=== PATIENT | female | born 1995 | race Caucasian/White ===

== ENCOUNTER 2022-08-21 13:06 | Emergency (ER) | payer OTHER, SELFPAY ==
--- NOTE | ~2022-08-21 | CT_ITS ---
EXAMINATION: CT lumbar spine wo con DATE: 08/21/2022 18:31 INDICATION: Low back pain with urinary incontinence TECHNIQUE: Computed tomography (CT) of the lumbar spine was performed without intravenous contrast. T he dose-length product (DLP) was 1289.57 mGy-cm. Iterative reconstruction was used. COMPARISON: None FINDINGS: There are 2 mm of retrolisthesis of L5 on S1. Vertebral body alignment is otherwise normal. The vertebral body heights are maintained. The intervertebral disc spaces are normal. There is a mil d central posterior disc bulge at L5-S1. IMPRESSION: 1. Mild lumbar spondylosis without acute findings. Reviewed, dictated and finalized at location F. 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
[2022-08-21 13:21] VITALS: BP 126/67; PULSE 68; RESP 16; TEMP 36.5; O2SAT 100
--- NOTE | 2022-08-21 16:14 | PC.NURSE ---
patient flopping aroun in bed using call light multiple times stating that her pain is Severe . family at nursing station accusing this RN of : not caring for patient. ERP made aware. no new orders
--- NOTE | 2022-08-21 16:28 | ED.BACK ---
HPI - Back Pain/Injury General Chief Complaint: Back Pain/Injury Stated Complaint: fall x 3 - reports legs just give out - back spasm Time Seen by Provider: 08/21/22 15:44 History of Present Illness HPI Narrative: Patient is a 26-year-old female with a history of depression, PTSD presenting with back pain. Patient states that she has had intermittent but worsening lower back pain for the last 4 to 6 months. Denies any recent trauma. Patient states that she saw her PCP about a month ago and they wanted to work on improving her mental health. States that she mentioned her back pain but no imaging was obtained. Since that time she has continued to have intermittent lower back pain that sometimes now radiates to her neck. States that she has had shooting pain down both of her arms for the last several weeks. States that she feels like both of her lower extremities have felt weaker than normal. Today she called her PCPs office who told her to go to the ER. She also complains that she has had episodes of feeling like she is not fully emptying her bladder. Denies groin anesthesia or bowel incontinence. No numbness in her lower extremities. No fevers or chills. No history of IV drug use. She denies headache, vision changes, chest pain, shortness of breath, cough, abdominal pain, vomiting, diarrhea, leg swelling. Related Data Allergies Allergy/AdvReac Type Severity Reaction Status Date / Time No Known Allergies Allergy Verified 08/21/22 13:07 Review of Systems Review of Systems: All systems reviewed & are unremarkable except as noted in HPI and below Exam Narrative: GENERAL: Well-appearing, well-nourished, and in no acute distress. HEAD: Normocephalic, atraumatic. EYES: PERRLA and EOMI. ENT: Nares clear, no rhinorrhea or epistaxis. Mucous membranes moist. NECK: Supple. CHEST: Clear to auscultation. No respiratory distress. HEART: Regular rate and rhythm. No murmur heard. Normal peripheral pulses. ABDOMEN: Soft, nontender, nondistended, normal active bowel sounds. EXTREMITIES: Normal range of motion. No edema. SKIN: Warm, dry, no rash. NEURO: No focal deficits. Alert and oriented x3. Strength is 5 out of 5 in all extremities, no sensory deficits PSYCH: Normal mood and affect. Course Vital Signs Vital signs: Vital Signs Temperature 97.7 F 08/21/22 13:21 Pulse Rate 68 08/21/22 13:21 Respiratory Rate 16 08/21/22 13:21 Blood Pressure 126/67 08/21/22 13:21 Pulse Oximetry 100 08/21/22 13:21 Oxygen Delivery Room Air 08/21/22 13:21 Temperature 97.7 F 08/21/22 13:21 Pulse Rate 73 08/21/22 21:10 Respiratory Rate 16 08/21/22 21:10 Blood Pressure 127/77 08/21/22 21:10 Pulse Oximetry 98 08/21/22 21:10 Oxygen Delivery Room Air 08/21/22 13:21 MDM - Back Pain/Injury MDM Narrative Medical decision making narrative: Patient is a 26-year-old female presenting with several months of back pain. Vitals are within normal limits. Exam is unremarkable. She is neurologically intact. She does have some lumbar tenderness that extends across her buttocks. CT lumbar spine shows no acute abnormalities. Blood work is unremarkable. CRP is normal. ESR is very mildly elevated. UA is unremarkable. Patient does report improvement following IV Toradol, Tylenol, Decadron. Feel she is safe for outpatient work-up. Will prescribe Medrol Dosepak and Flexeril. Advised close PCP follow-up. Strict return precautions given. Patient voiced understanding and is agreeable with plan. Discharged in stable condition. Lab Data Result diagrams: 08/21/22 17:01 08/21/22 17:01 Labs: Lab Results 08/21/22 08/21/22 08/21/22 Range/Units 17:01 17:01 18:06 WBC 6.8 (4.5-10.0) K/mm3 RBC 4.17 L (4.2-5.4) M/mm3 Hgb 12.3 (12.0-15.0) g/dL Hct 38.3 (37.0-47.0) % MCV 91.8 (80-100) fl MCH 29.5 (26-34) pg MCHC 32.1 (32-36) g/dl RDW 13.4 (11.5-14.5) % Pl
[2022-08-21] MEDS: SODIUM CHLORIDE 0.9% IV 1,000 ML 999 ML IV CONT (17:02)
[2022-08-21] MEDS: KETOROLAC 30 MG/ML VIAL (*BKC) IV PUSH (17:02)
[2022-08-21] MEDS: CYCLOBENZAPRINE HCL 10 MG TABLET PO (17:08)
[2022-08-21 17:15] LABS: Basophils Percent Auto 0.4 % (0.2-1.2); Eosinophils Absolute Auto 0.1 K/mm3 (0-0.3); Eosinophils Percent Auto 1.3 % (0-4.4); Hematocrit 38.3 % (37.0-47.0); Hemoglobin 12.3 g/dL (12.0-15.0); Immature Granulocyte Absolute 0.02 K/mm3 (0.00-0.031); Immature Granulocyte Percent A 0.3 % (0-0.5); Lymphocytes Absolute Auto 2.78 K/mm3 (0.9-3.2); Lymphocytes Percent Auto 41.1 % (18.3-44.2); Mean Corpuscular HGB Conc 32.1 g/dl (32-36); Mean Corpuscular Hemoglobin 29.5 pg (26-34); Mean Corpuscular Volume 91.8 fl (80-100); Mean Platelet Volume 9.2 fl (7.4-10.4); Monocytes Absolute Auto 0.4 K/mm3 (0.1-0.6); Monocytes Percent Auto 5.3 % (2.6-8.5); Neutrophils Absolute Auto 3.5 K/mm3 (1.3-6.7); Neutrophils Percent Auto 51.6 % (45.5-73.1); Platelet Count Result 310 k/mm3 (150-375); Red Blood Count 4.17 M/mm3 (4.2-5.4); Red Cell Distribution Width 13.4 % (11.5-14.5); White Blood Count 6.8 K/mm3 (4.5-10.0)
[2022-08-21 17:20] LABS: Alanine Aminotransferase 39 U/L (6-35); Albumin Level 4.7 g/dL (3.5-5.1); Alkaline Phosphatase 91 U/L (38-126); Anion Gap 12 mmol/L (8-16); Aspartate Amino Transferase 27 U/L (14-36); Bilirubin,Total 0.6 mg/dL (0.2-1.3); Blood Urea Nitrogen 10 mg/dL (7-17); Carbon Dioxide 23 mmol/L (22-30); Chloride 104 mmol/L (98-107); Estimated CRCL calculation 121 ml/min; Estimated Glomerular Filt Rate > 60; Glucose 99 mg/dL (65-110); Potassium 3.8 mmol/L (3.4-5.0); Sodium 139 mmol/L (137-145)
[2022-08-21 18:08] LABS: Erythrocyte Sedimentation Rate 33 mm/hr (0-20)
[2022-08-21 18:13] LABS: Appearance Urine Clear (Clear); Bilirubin Urine Negative (Negative); Blood Urine Negative (Negative); Color Urine Yellow (Yellow); Glucose Urine UA Negative (Negative); Ketones Urine Trace mg/dL (Negative); Leukocyte Esterase Ur Negative LEU/UL (Negative); Nitrate Urine Negative (Negative); Protein Urine Negative (Negative); Specific Grav Ur 1.025 (1.001-1.035); Urobilinogen Urine 0.2 mg/dL (<2.0); pH Urine 5.5 (5.0-9.0)
[2022-08-21 18:18] LABS: Add Urine Microscopic? YES; Bacteria Urine Trace /hpf; Mucus Urine Rare /lpf; Squamous Epithelial Cell Urine Few /hpf (Few); WBC Urine 0-3 /hpf
[2022-08-21 21:10] VITALS: BP 127/77; PULSE 73; RESP 16; O2SAT 98
== END 2022-08-21 21:10 | disposition home or self-care (01) ==
PROVIDERS: Emergency Provider Emergency Medicine
DX: M47.26 Other spondylosis with radiculopathy, lumbar region (principal)
CPT/HCPCS: 36415; 72131; 80053; 81001; 81025; 85025; 85652; 86140; 96361; 96374; 96375; 99284; A9270; J0131; J1100; J1885; J7030

== ENCOUNTER 2023-12-31 02:12 | Emergency (ER) | payer OTHER, SELFPAY ==
--- NOTE | ~2023-12-31 | CT_ITS ---
EXAMINATION: CT abdomen pelvis w con DATE: 12/31/2023 03:41 INDICATION: Epigastric abdominal pain radiating to the back. TECHNIQUE: Computed tomography (CT) of the abdomen and pelvis was performed with 100 mL Omnipaque 350 intravenous contrast. Automated exposure control and iterative reconstruction technique were employe d. The dose-length product was 1077.59 mGy-cm. COMPARISON: None. FINDINGS: The visualized portions of the lung bases demonstrate mild atelectasis. No pleural effusion . The heart size is normal. No pericardial effusion. The liver and spleen are normal. There are ch es of cholecystectomy. The pancreas, adrenal glands, and kidneys are normal. There are no dilated loo ps of bowel. The appendix is normal. There are no pathologically enlarged lymph nodes. There is no fr ee intraperitoneal fluid. There is internal fixation of left femur. There is mild lumbar spondylosis. IMPRESSION: 1. No etiology for the patient's symptoms. Reviewed, dictated and finalized at location E.
--- NOTE | 2023-12-31 02:42 | ED.GENADULT ---
HPI - General Adult General Chief complaint: Abdominal Pain Stated complaint: ABDOMINAL PAIN Time Seen by Provider: 12/31/23 02:22 History of Present Illness HPI narrative: This is a 28-year-old female presenting ED with chief complaint of abdominal pain. Pain started approximately 24 hours ago while she was trying to go to bed. It is an achy pain in the epigastric area that wraps around to her back. It is 5/10 in intensity, constant and worsening. She has never had pain like this before. Improved with Tylenol p.m. there are no exacerbating symptoms. It is associated with nausea vomiting diarrhea. No fevers chills chest pain difficulty breathing. patient denies dysuria says she is having difficulty initiating stream when she has the urge to go. Patient takes Ozempic for which she pays out of pocket without a supervising physician. Related Data Home Medications Medication Instructions Recorded Confirmed Ozempic 1 mg IM WEEKLY 12/31/23 12/31/23 Allergies Allergy/AdvReac Type Severity Reaction Status Date / Time No Known Allergies Allergy Verified 12/31/23 03:01 PENDING SALE TO [facility] Past Medical History Medical History Anxiety Exam Narrative: APPEARANCE: No apparent distress. Head: atraumatic. EYES: EOMI, NOSE: Atraumatic NECK: Trachea midline RESPIRATORY: No increased rate of breathing, CTAB CARDIOVASCULAR: RRR, ABDOMINAL: Tenderness to palpation in the epigastric region with voluntary guarding MUSCULOSKELETAl: No obvious deformities NEURO: Alert. Moving 4/4 extremities SKIN:: Warm, dry. Normal color PSYCHIATRIC: Normal affect Course Vital Signs Vital signs: Vital Signs Temperature 97.3 F L 12/31/23 02:46 Pulse Rate 79 12/31/23 02:46 Respiratory Rate 18 12/31/23 02:46 Blood Pressure 123/83 12/31/23 02:46 Pulse Oximetry 97 12/31/23 02:46 Oxygen Delivery Room Air 12/31/23 02:46 Temperature 97.2 F L 12/31/23 04:07 Pulse Rate 71 12/31/23 04:07 Respiratory Rate 18 12/31/23 04:07 Blood Pressure 106/65 12/31/23 04:07 Pulse Oximetry 97 12/31/23 04:07 Oxygen Delivery Room Air 12/31/23 04:07 Medical Decision Making MDM Narrative Medical decision making narrative: -Course: -DDX includes but is not limited to: gastritis, pancreatitis, ozmepic side effect, viral illness -Co-morbidities complicating care: depression, off-label Ozempic use -Social determinants of health: Unemployed, on government aid -Independent interpretation of studies: labs reviewed and within normal limits. Lipase normal. Not indicative infection. UDS negative alcohol negative. Independent EKG interpretation: Rhythm [sinus], Rate [74], Boyd -[normal], MD -[normal], QRS [narrow], QTC [normal], T waves -[negative for concerning inversions], ST Segments - [Negative for concerning elevations] Final interpretations: [Normal Sinus Rhythm] -Interventions: 2 L normal saline Pepcid, Toradol, Zofran -Shared decision making / Disposition: discharged -RX Pepcid, Zofran Vital Signs Vital Signs: Vital Signs Temperature 97.3 F L 12/31/23 02:46 Pulse Rate 79 12/31/23 02:46 Respiratory Rate 18 12/31/23 02:46 Blood Pressure 123/83 12/31/23 02:46 Pulse Oximetry 97 12/31/23 02:46 Oxygen Delivery Room Air 12/31/23 02:46 Temperature 97.2 F L 12/31/23 04:07 Pulse Rate 71 12/31/23 04:07 Respiratory Rate 18 12/31/23 04:07 Blood Pressure 106/65 12/31/23 04:07 Pulse Oximetry 97 12/31/23 04:07 Oxygen Delivery Room Air 12/31/23 04:07 Lab Data 12/31/23 02:53 12/31/23 02:53 Labs: Lab Results 12/31/23 12/31/23 12/31/23 Range/Units 02:53 03:24 04:04 WBC 9.2 (4.8-10.8) K/mm3 RBC 4.04 L (4.20-5.40) M/mm3 Hgb 11.7 L (12.0-15.0) g/dL Hct 36.6 (35.0-49.0) % MCV 90.6 (78.0-102.0) fL MCH 29.0 (27.0-31.0) pg MCHC 32.0 (32-36) g/dL RDW 12.7
--- NOTE | 2023-12-31 02:43 | ECG_ITS ---
Measurements Intervals [place] Rate: 74 P: 18 [place]: 180 QRS: -9 QRSD: 94 T: -14 QT: 380 QTc: 423 Interpretive Statements SINUS RHYTHM LOW QRS VOLTAGE IN PRECORDIAL LEADS NONSPECIFIC ST-T WAVE ABNORMALITY- DIFFUSE LEADS BORDERLINE ECG NO PREVIOUS ECG AVAILABLE FOR COMPARISON Electronically Signed On 12-31-2023 6:27:34 CDT by Chris Souza D.O.
[2023-12-31 02:46] VITALS: BP 123/83; PULSE 79; RESP 18; TEMP 36.3; O2SAT 97
[2023-12-31 02:56] LABS: Basophils Absolute Auto 0.03 K/mm3 (0.00-0.10); Basophils Percent Auto 0.3 % (0.0-1.0); Eosinophils Percent Auto 3.2 % (1.0-6.0); Hematocrit 36.6 % (35.0-49.0); Hemoglobin 11.7 g/dL (12.0-15.0); Immature Granulocyte Absolute 0.02 K/mm3 (0.00-0.00); Immature Granulocyte Percent A 0.2 % (0.0-0.0); Lymphocytes Absolute Auto 3.56 K/mm3 (1.10-4.50); Lymphocytes Percent Auto 38.5 % (18.0-42.0); Mean Corpuscular Volume 90.6 fL (78.0-102.0); Monocytes Absolute Auto 0.32 K/mm3 (0.10-0.90); Monocytes Percent Auto 3.5 % (2.0-11.0); Neutrophils Absolute Auto 5.01 K/mm3 (1.70-7.20); Neutrophils Percent Auto 54.3 % (50.0-70.0); Platelet Count Result 307 K/mm3 (150-420); Red Blood Count 4.04 M/mm3 (4.20-5.40); Red Cell Distribution Width 12.7 % (11.6-14.4); White Blood Count 9.2 K/mm3 (4.8-10.8)
[2023-12-31 02:59] LABS: Add Urine Microscopic? NO; Appearance Urine Clear (Clear); Bilirubin Urine Negative (Negative); Blood Urine Negative (Negative); Color Urine Yellow (Yellow); Glucose Urine UA Negative (Negative); Ketones Urine Negative (Negative); Leukocyte Esterase Ur Negative LEU/UL (Negative); Nitrate Urine Negative (Negative); Protein Urine Negative (Negative); Specific Grav Ur >= 1.030 (1.010-1.020); Urobilinogen Urine 0.2 mg/dL (0.2-1.0); pH Urine 5.5 (5.0-8.0)
[2023-12-31 03:06] LABS: Amphetamine Screen Urine Negative (Negative); Barbiturate Screen Urine Negative (Negative); Benzodiazepines Screen Urine Negative (Negative); Cannabinoid Screen Urine Negative (Negative); Cocaine Screen Urine Negative (Negative); Methadone Screen Urine Negative (Negative); Opiate Screen Urine Negative (Negative); Phencyclidine Screen Urine Negative (Negative)
[2023-12-31 03:16] LABS: Alanine Aminotransferase 24 U/L (14-59); Albumin Level 3.8 g/dL (3.4-5.0); Alkaline Phosphatase 78 U/L (46-116); Anion Gap 11 mmol/L (8-16); Aspartate Amino Transferase 13 U/L (15-37); Bilirubin,Total 0.5 mg/dL (0.00-1.00); Blood Urea Nitrogen 16 mg/dL (7-18); Calcium 8.8 mg/dL (8.5-10.1); Carbon Dioxide 24 mmol/L (21-32); Chloride 104 mmol/L (98-108); Estimated CRCL calculation 105 ml/min; Estimated Glomerular Filt Rate > 60; Glucose 114 mg/dL (70-99); Lipase 44 U/L (16-77); Osmolality Calculated 290 mOsm/kg (285-295); Potassium 3.5 mmol/L (3.5-5.1); Sodium 139 mmol/L (136-145); Total Protein 7.7 g/dL (6.4-8.2)
[2023-12-31 03:18] LABS: Ethanol < 3 mg/dL (0-6)
[2023-12-31 03:20] LABS: Lactic Acid Reflex 1.2 mmol/L (0.4-2.0)
[2023-12-31] MEDS: SODIUM CHLORIDE 0.9% IV 2,000 ML 999 ML IV CONT (03:24)
[2023-12-31] MEDS: FAMOTIDINE 20 MG/2 ML VIAL IV PUSH (03:25)
[2023-12-31] MEDS: ONDANSETRON INJ 4 MG/2 ML VIAL IV PUSH (03:25)
[2023-12-31] MEDS: KETOROLAC 15 MG/ML VIAL (*BKC) IV PUSH (03:26)
[2023-12-31 03:27] LABS: Pregnancy On Board Control Positive; Urine Pregnancy Test Negative
--- NOTE | 2023-12-31 03:30 | PC.NURSE ---
PATIENT MEDICATED PER ORDER, SEE DEC. TAKEN TO CT SCAN VIA WHEELCHAIR BY LICENSED PROSTHETIST/ORTHOTIST. GIVEN SECOND WARM BLANKET PRIOR TO TRANSPORT. PATIENT NOT HAVING ACTIVE EMESIS.
--- NOTE | 2023-12-31 04:01 | PC.NURSE ---
DR COLEMAN AT BEDSIDE, UPDATE PROVIDED. PATIENT AWAKE AND ALERT WITHOUT DISTRESS RESTING ON STRETCHER. IVF INFUSING. PATIENT DENIES CURRENT NEEDS, SWABBED FOR RESPIRATORY VIRUSES PER ORDER.
[2023-12-31 04:07] VITALS: BP 106/65; PULSE 71; RESP 18; TEMP 36.2; O2SAT 97
[2023-12-31 04:46] LABS: Influenza A QL RT-PCR Negative (Negative); Influenza B QL RT-PCR Negative (Negative); RSV RNA, RT-PCR Negative (Negative); SARS-CoV-2 RNA PCR Negative (Negative)
--- NOTE | 2023-12-31 04:52 | PC.NURSE ---
AT BEDSIDE, UPDATE REGARDING LABS AND IMAGING RESULTS PRESENTED TO PATIENT AT THIS TIME. PATIENT AWAKE AND ALERT WITHOUT DISTRESS.
== END 2023-12-31 05:09 | disposition home or self-care (01) ==
PROVIDERS: Emergency Provider Emergency Medicine
DX: K52.9 Noninfective gastroenteritis and colitis, unspecified (principal); Z79.84 Long term (current) use of oral hypoglycemic drugs; Z20.822 Contact with and (suspected) exposure to COVID-19
CPT/HCPCS: 36415; 74177; 80053; 80307; 81003; 81025; 83605; 83690; 85025; 87637; 93005; 96361; 96374; 96375; 99284; J1885; J2405; J7030; Q9967

== ENCOUNTER 2024-08-01 14:27 | Emergency (ER) | payer OTHER, SELFPAY ==
[2024-08-01 14:28] VITALS: BP 141/87; PULSE 72; RESP 20; TEMP 36.3; O2SAT 95
--- NOTE | 2024-08-01 14:42 | ECG_ITS ---
Test Date: 2024-08-01 14:57:13 Measurements Intervals [place] Rate: 72 P: 20 [place]: 164 QRS: -3 QRSD: 97 T: 13 QT: 411 QTc: 453 Interpretive Statements SINUS RHYTHM LOW QRS VOLTAGE IN PRECORDIAL LEADS [QRS DEFLECTION < 1.0 mV IN CHEST LEADS] NONSPECIFIC T-WAVE ABNORMALITY ABNORMAL ECG No previous ECG available for comparison Electronically Signed On 08-02-2024 13:14:10 CDT by Bran Graham M.D.
[2024-08-01] MEDS: MECLIZINE HCL 25 MG TABLET PO (14:48)
[2024-08-01] MEDS: ONDANSETRON HCL ODT 4 MG TABLET PO (14:48)
[2024-08-01 15:11] LABS: Basophils Absolute Auto 0.05 K/mm3 (0.00-0.10); Basophils Percent Auto 0.5 % (0.0-1.0); Eosinophils Absolute Auto 0.14 K/mm3 (0.02-0.50); Eosinophils Percent Auto 1.5 % (1.0-6.0); Hematocrit 37.9 % (35.0-49.0); Hemoglobin 12.3 g/dL (12.0-15.0); Immature Granulocyte Absolute 0.03 K/mm3 (0.00-0.00); Immature Granulocyte Percent A 0.3 % (0.0-0.0); Lymphocytes Absolute Auto 3.76 K/mm3 (1.10-4.50); Lymphocytes Percent Auto 41.3 % (18.0-42.0); Mean Corpuscular HGB Conc 32.5 g/dL (32-36); Mean Corpuscular Hemoglobin 29.3 pg (27.0-31.0); Mean Corpuscular Volume 90.2 fL (78.0-102.0); Monocytes Absolute Auto 0.39 K/mm3 (0.10-0.90); Monocytes Percent Auto 4.3 % (2.0-11.0); Neutrophils Absolute Auto 4.74 K/mm3 (1.70-7.20); Neutrophils Percent Auto 52.1 % (50.0-70.0); Platelet Count Result 325 K/mm3 (150-420); Red Cell Distribution Width 12.9 % (11.6-14.4); White Blood Count 9.1 K/mm3 (4.8-10.8)
[2024-08-01 15:14] LABS: Add Urine Microscopic? NO; Appearance Urine Clear (Clear); Bilirubin Urine Negative (Negative); Blood Urine Negative (Negative); Color Urine Light Yellow (Yellow); Glucose Urine UA Negative (Negative); Ketones Urine Negative (Negative); Leukocyte Esterase Ur Negative LEU/UL (Negative); Nitrate Urine Negative (Negative); Protein Urine Negative (Negative); Specific Grav Ur 1.025 (1.010-1.020); Urobilinogen Urine 0.2 mg/dL (0.2-1.0)
[2024-08-01 15:21] LABS: Pregnancy On Board Control Positive; Urine Pregnancy Test Negative
--- NOTE | 2024-08-01 15:25 | ED.DIZZY ---
HPI - Dizziness General Chief Complaint: Dizziness Stated Complaint: dizzy Source: patient and family Mode of arrival: ambulatory Limitations: no limitations History of Present Illness HPI Narrative: this is a 28-year-old female with no significant past medical history presents with vertigo sensation of room spinning with some mild nausea no vomiting no fever chills no chest pain no shortness of breath no headaches. Symptoms started few days ago and approximately 1 week ago had an upper respiratory viral type syndrome. MD elicited complaint: dizziness Pertinent past history: inner ear problems Timing: gradual onset Severity: mild Description: sense of movement and room spinning Related Data Home Medications Medication Instructions Recorded Confirmed escitalopram oxalate 5 mg tablet 5 mg PO HS 08/01/24 08/01/24 ziprasidone HCl 20 mg capsule 20 mg PO BID 08/01/24 08/01/24 Allergies Allergy/AdvReac Type Severity Reaction Status Date / Time bee venom protein (honey bee) Allergy Unknown Verified 08/01/24 14:32 [bees] Review of Systems Review of Systems: All systems reviewed & are unremarkable except as noted in HPI and below PMFSH Past Medical History Medical History Anxiety Exam Const: General: healthy appearing and no acute distress Nutritional Appearance: well nourished and obese Orientation/consciousness: patient oriented x3 Limitations: no limitations HENMT: Head: normal to inspection Ears: TM's normal bilaterally Face/Nose/Sinus: Normal external nose present Eyes: Conjunctivae: conjunctivae normal Pupils: Equal, round and reactive pupils present Neck: Neck: normal visual inspection and no lymphadenopathy Chest: Chest palpation & inspection: normal inspection of the chest Resp: Effort & Inspection: normal respiratory effort Auscultation: clear to auscultation bilaterally Cardio: Rate: regular rate Rhythm: regular rhythm GI: GI Palp: Yes Soft to palpation Auscultation: normal bowel sounds : General: Yes bladder normal to palpation Skin: General skin exam: normal color Rashes: no rashes Neuro: General: patient oriented x3, moves all extremities, no meningeal signs and no focal motor deficits Cranial nerves: Yes Nystagmus not present Speech: normal speech Course Course Emergency Course: Patient received ODT Zofran and meclizine after reassessment patient's symptoms have improved blood work EKG all within normal limits. Vital Signs Vital signs: Vital Signs Temperature 36.3 C L 08/01/24 14:28 Pulse Rate 72 08/01/24 14:28 Respiratory Rate 20 08/01/24 14:28 Blood Pressure 141/87 H 08/01/24 14:28 Pulse Oximetry 95 08/01/24 14:28 Oxygen Delivery Room Air 08/01/24 14:28 Temperature 36.3 C L 08/01/24 14:28 Pulse Rate 72 08/01/24 14:28 Respiratory Rate 20 08/01/24 14:28 Blood Pressure 141/87 H 08/01/24 14:28 Pulse Oximetry 95 08/01/24 14:28 Oxygen Delivery Room Air 08/01/24 14:28 MDM - Dizziness Lab Data 08/01/24 15:06 08/01/24 15:06 Labs: Lab Results 08/01/24 Range/Units 15:06 WBC 9.1 (4.8-10.8) K/mm3 RBC 4.20 (4.20-5.40) M/mm3 Hgb 12.3 (12.0-15.0) g/dL Hct 37.9 (35.0-49.0) % MCV 90.2 (78.0-102.0) fL MCH 29.3 (27.0-31.0) pg MCHC 32.5 (32-36) g/dL RDW 12.9 (11.6-14.4) % Plt Count 325 (150-420) K/mm3 MPV 9.0 L (9.2-11.8) fl Immature Gran % (Auto) 0.3 H (0.0-0.0) % Neut % (Auto) 52.1 (50.0-70.0) % Lymph % (Auto) 41.3 (18.0-42.0) % [place] % (Auto) 4.3 (2.0-11.0) % Eos % (Auto) 1.5 (1.0-6.0) % Baso % (Auto) 0.5 (0.0-1.0) % Lymph # (Auto) 3.76 (1.10-4.50) K/mm3 [place] # (Auto) 0.39 (0.10-0.90) K/mm3 Eos # (Auto) 0.14 (0.02-0.50) K/mm3 Baso # (Auto) 0.05 (0.00-0.10) K/mm3 Abs Immat Gran (auto) 0.03 H (0.00-0.00) K/mm3 Absolute Neuts (auto) 4.74 (1.70-7.20) K/mm3 Absolute Nucleated RBC 0.00 (0.00-0.00) K/mm3 Nucleated RBC % 0.0 (0-0.0) % Sodium Pending Potassium Pending Chloride Pending Carbon Dioxide Pending Anion Gap Pending BUN Pending Creatinine Pending Estim Creat Clear Calc Pending Estimated GFR Pending Glucose Pending Calculated Osmolality Pending Calcium Pending Total Bilirubin Pending AST Pending ALT Pending Alkaline Phosphatase Pending Total Protein Pending Albumin Pending Urine Color Light yellow (Yellow) Urine Appearance Clear (Clear) Urine pH 6.0 (5.0-8.0) Ur Specific [place] 1.025 H (1.010-1.020) Urine Protein Negative (Negative) Urine Glucose (UA) Negative (Negative) Urine Ketones Negative (Negative) Ur Blood (Man) Negative (Negative) Urine Nitrate Negative (Negative) Urine Bilirubin Negative (Negative) Urine Urobilinogen 0.2 (0.2-1.0) mg/dL Leukocyte Esterase Rfl Negative (Negative) AMMY/UL Urine Test Negative Critical Care Time Critical Care Time Critical Care Time: No Discharge Plan Discharge Clinical Impression: Vestibular labyrinthitis Qualifiers: Laterality: unspecified laterality Qualified Code(s): H83.09 - Labyrinthitis, unspecified ear Patient Disposition: Home, Self-Care Condition: Stable Instructions: Antibiotic Form, Labyrinthitis (ED) Additional Instructions: advised to take medication as prescribed and follow-up primary within 1 week for further evaluation and treatment. Prescriptions: New meclizine 25 mg tablet 25 mg PO TID Qty: 20 0RF ondansetron 4 mg tablet,disintegrating 4 mg PO Q6H PRN (Reason: nausea and vomiting) Qty: 14 0RF No Action ziprasidone HCl 20 mg capsule 20 mg PO BID escitalopram oxalate 5 mg tablet 5 mg PO HS Follow-up/Referrals: UNKNOWN,DOCTOR [Primary Care Provider] -
[2024-08-01 15:34] LABS: Alanine Aminotransferase 25 U/L (14-59); Albumin Level 3.6 g/dL (3.4-5.0); Alkaline Phosphatase 75 U/L (46-116); Anion Gap 10 mmol/L (4-12); Aspartate Amino Transferase 15 U/L (15-37); Bilirubin,Total 0.4 mg/dL (0.00-1.00); Blood Urea Nitrogen 17 mg/dL (7-18); Carbon Dioxide 26 mmol/L (21-32); Chloride 106 mmol/L (98-108); Estimated CRCL calculation 87 ml/min; Estimated Glomerular Filt Rate > 60; Glucose 98 mg/dL (70-99); Osmolality Calculated 295 mOsm/kg (285-295); Potassium 3.8 mmol/L (3.5-5.1); Sodium 142 mmol/L (136-145)
[2024-08-01 15:50] VITALS: BP 130/80; PULSE 70; RESP 20; TEMP 36.9; O2SAT 98
== END 2024-08-01 15:51 | disposition home or self-care (01) ==
PROVIDERS: Emergency Provider Emergency Medicine
DX: H83.09 Labyrinthitis, unspecified ear (principal); Z79.899 Other long term (current) drug therapy
CPT/HCPCS: 36415; 80053; 81003; 81025; 85025; 93005; 99283; A9270

== ENCOUNTER 2024-09-22 23:40 | Emergency (ER) | payer OTHER, SELFPAY ==
[2024-09-22 23:40] VITALS: BP 126/80; PULSE 92; RESP 16; TEMP 36.3; O2SAT 97
--- NOTE | 2024-09-22 23:57 | ED_ITS ---
HPI - URI/Sore Throat General Chief Complaint: Upper Respiratory Infection Stated Complaint: URI Time Seen by Provider: 09/22/24 23:54 History of Present Illness HPI Narrative: Pt presents with low grade fever and cough sicne this morning. Daughters have the same symptoms. Pt denies vomiting. Related Data Home Medications ?Medication ?Instructions ?Recorded ?Confirmed ?Last Taken ?Type escitalopram oxalate 5 mg tablet 5 mg PO HS 08/01/24 09/23/24 Unknown History ziprasidone HCl 20 mg capsule 20 mg PO BID 08/01/24 09/23/24 Unknown History Allergies Allergy/AdvReac Type Severity Reaction Status Date / Time bee venom protein (honey Allergy Unknown Verified 09/23/24 00:06 bee) (bees) Review of Systems Review of Systems: All systems reviewed & are unremarkable except as noted in HPI and below PMFSH Past Medical History Medical History Anxiety Exam Const: General: healthy appearing and no acute distress Nutritional Appearance: well nourished Orientation/consciousness: patient oriented x3 Limitations: no limitations HENMT: Head: normal to inspection Eyes: EOM: EOMs intact bilaterally Resp: Effort & Inspection: normal respiratory effort Auscultation: clear to auscultation bilaterally Cardio: Rate: regular rate Rhythm: regular rhythm GI: GI Palp: Yes Soft to palpation and No Tenderness to palpation present (GI) Auscultation: normal bowel sounds Skin: General skin exam: normal color Wounds: no wounds Neuro: General: patient oriented x3, moves all extremities, no meningeal signs and no focal motor deficits Speech: normal speech Extrem: General: normal to inspection and no clubbing, cyanosis or edema Psych: Mental Status: mental status grossly normal Affect: normal affect Attitude: cooperative Course Vital Signs Vital signs: Vital Signs Temperature 97.4 F L 09/22/24 23:40 Pulse Rate 92 09/22/24 23:40 Respiratory Rate 16 09/22/24 23:40 Blood Pressure 126/80 09/22/24 23:40 Pulse Oximetry 97 09/22/24 23:40 Oxygen Delivery Room Air 09/22/24 23:40 Temperature 97.4 F L 09/22/24 23:40 Pulse Rate 92 09/22/24 23:40 Respiratory Rate 16 09/22/24 23:40 Blood Pressure 126/80 09/22/24 23:40 Pulse Oximetry 97 09/22/24 23:40 Oxygen Delivery Room Air 09/22/24 23:40 MDM - URI/Sore Throat MDM Narrative Medical decision making narrative: pt has cough and low grade temp and children with same symptoms likely viral uri will get covd flu rsv swab. swabs all neg. cold type virus. Lab Data Labs: Lab Results 09/22/24 Range/Units 23:59 Influenza A (RT-PCR) Negative (Negative) Influenza B (RT-PCR) Negative (Negative) RSV (RT-PCR) Negative (Negative) SARS-CoV-2 RNA (RT-PCR) Negative (Negative) Discharge Plan Discharge Clinical Impression: Upper respiratory infection Patient Disposition: Home, Self-Care Condition: Stable Instructions: Antibiotic Form, Cold Symptoms (ED) Patient Language: Turkish Prescriptions: No Action ziprasidone HCl 20 mg capsule 20 mg PO BID escitalopram oxalate 5 mg tablet 5 mg PO HS meclizine 25 mg tablet 25 mg PO TID Qty: 20 0RF Follow-up/Referrals: Lauri,Da Menchaca MD [Primary Care Provider] -
[2024-09-23 00:31] LABS: SARS-CoV-2 RNA PCR Negative (Negative)
[2024-09-23 00:32] LABS: Influenza A QL RT-PCR Negative (Negative); Influenza B QL RT-PCR Negative (Negative); RSV RNA, RT-PCR Negative (Negative)
[2024-09-23 00:40] VITALS: BP 125/79; PULSE 90; RESP 16; O2SAT 98
== END 2024-09-23 00:40 | disposition home or self-care (01) ==
PROVIDERS: Emergency Provider Emergency Medicine; PCP Family Medicine
DX: J06.9 Acute upper respiratory infection, unspecified (principal); Z20.822 Contact with and (suspected) exposure to COVID-19
CPT/HCPCS: 87637; 99283

== ENCOUNTER 2024-12-14 08:17 | Emergency (ER) | payer OTHER, SELFPAY ==
[2024-12-14 08:21] VITALS: BP 135/80; PULSE 78; RESP 18; TEMP 36.6; O2SAT 95
--- NOTE | 2024-12-14 08:29 | ED.SKABFB ---
HPI - Skin/Abscess/Foreign Bdy General Chief complaint: Skin/Abscess/Foreign Body Stated complaint: rash Time Seen by Provider: 12/14/24 08:26 Source: patient Mode of arrival: ambulatory Limitations: no limitations History of Present Illness HPI narrative: 29 year old female presents to the Emergency Department complaining of rash to her abdomen. Onset a week ago. Rash blanco some. Patient is 2 months . Patient feels rash may be spreading to arms. No new medications, foods, soaps, detergents. No shortness of breath, tightness in throat or trouble swallowing. No fever. No known exposure. MD complaint: rash Onset (ago): week(s) (one) Location: generalized (to abdomen) Severity: moderate Quality: burning Pain Consistency: intermittent Relieving factors: none Exacerbating factors: none Context: none Associated symptoms: denies other symptoms Treatments prior to arrival: none Related Data Home Medications ?Medication ?Instructions ?Recorded ?Confirmed ?Last Taken ?Type escitalopram oxalate 5 mg tablet 5 mg PO HS 08/01/24 09/23/24 Unknown History ziprasidone HCl 20 mg capsule 20 mg PO BID 08/01/24 09/23/24 Unknown History Allergies Allergy/AdvReac Type Severity Reaction Status Date / Time bee venom protein (honey Allergy Unknown Verified 12/14/24 08:42 bee) (bees) Review of Systems Review of Systems: All systems reviewed & are unremarkable except as noted in HPI and below Constitutional: Constitutional: Reports as per HPI, Denies chills, Denies fatigue, Denies fever(s) and Denies weakness Eyes: Eyes: Reports as per HPI ENT: Reports system reviewed and no additional complaints, except as documented Cardiovascular: Cardiovascular: Reports as per HPI and Denies chest pain Respiratory: Respiratory: Reports as per HPI, Denies cough and Denies dyspnea Gastrointestinal: Gastrointestinal: Reports as per HPI, Denies abdominal pain, Denies diarrhea, Denies nausea and Denies vomiting Genitourinary: Genitourinary: Reports no additional female genitourinary complaints Musculoskeletal: Musculoskeletal: Reports no additional musculoskeletal complaints Integumentary/Breasts: Skin/Breast: Reports system reviewed and no additional complaints, except as docu and Reports rash Neurologic: Reports system reviewed and no additional complaints, except as documented and Denies headache(s) Psychiatric: Psychiatric: Reports no additional psychiatric complaints Endocrine: Endocrine: Reports no additional endocrine complaints Hematologic/Lymphatic: Hematologic/Lymphatic: Reports no additional hematologic/lymphatic complaints Allergic/Immunologic: Allergic/Immunologic: Reports no additional allergic/immunologic complaints [facility] Past Medical History Medical History Anxiety Exam Const: General: healthy appearing Nutritional Appearance: obese Orientation/consciousness: patient oriented x3 Limitations: no limitations HENMT: Head: normal to inspection Ears: external ears normal Face/Nose/Sinus: Normal external nose present Face and sinus: normal facial exam Mouth: Yes Normal oral and palatal mucosa present Teeth and gingiva: dentition normal Throat: posterior oropharynx normal Eyes: Conjunctivae: conjunctivae normal Pupils: Equal, round and reactive pupils present EOM: EOMs intact bilaterally Direct Ophthalmoscopy: no photophobia Neck: Neck: normal visual inspection and no meningeal signs Chest: Chest palpation & inspection: normal inspection of the chest Resp: Effort & Inspection: normal respiratory effort Auscultation: clear to auscultation bilaterally Cardio: Rate: regular rate Rhythm: regular rhythm GI: Inspection: non-distended Other: soft, non-tender : General: Yes bladder normal to palpation Back/Spine/Pelvis: Back: no CVA tenderness Skin: Other: rash to abdomen. Erythematous, small macular, no weeping or drainage Neuro: General: patient oriented x3, moves all extremities, no meningeal signs, no focal motor deficits and CN's II-XI intact bilaterally Cranial nerves: Yes Nystagmus not present Speech: normal speech Gait exam (Neuro): Normal gait present Extrem: General: normal to inspection Course Course Emergency Course: 29 y/o female presents to the ED c/o rash to abdomen for past week. Patient is 2 months . Rash blanco PE: rash localized to anterior abdomen. Erythema, small, macular, no weeping or drainage *disscused rash (pupp) associated with with patient. Will start initial treatment with low dose steroid [otc hydrocortisone cream]. Patient voices understanding and agreement. Instructions Vital Signs Vital signs: Vital Signs Temperature 36.6 C 12/14/24 08:21 Pulse Rate 78 12/14/24 08:21 Respiratory Rate 18 12/14/24 08:21 Blood Pressure 135/80 12/14/24 08:21 Pulse Oximetry 95 12/14/24 08:21 Oxygen Delivery Room Air 12/14/24 08:21 Temperature 36.6 C 12/14/24 08:21 Pulse Rate 78 12/14/24 08:21 Respiratory Rate 18 12/14/24 08:21 Blood Pressure 135/80 12/14/24 08:21 Pulse Oximetry 95 12/14/24 08:21 Oxygen Delivery Room Air 12/14/24 08:21 Discharge Plan Discharge Clinical Impression: Blistering skin rash during Patient Disposition: Home, Self-Care Condition: Stable Instructions: Dermatitis (ED) Additional Instructions: Apply Hydrocortisone OTC cream 0.5% twice daily Follow up with your OB Patient Language: Venezuelan Prescriptions: No Action ziprasidone HCl 20 mg capsule 20 mg PO BID escitalopram oxalate 5 mg tablet 5 mg PO HS meclizine 25 mg tablet 25 mg PO TID Qty: 20 0RF Follow-up/Referrals: Lauri,Da Menchaca MD [Primary Care Provider] - Time of Disposition: 08:36
--- OUTSIDE RECORDS SUMMARY | 2024-12-14 08:31 | XMS_ITS | Patient Health Summary ---
Author Organization [facility] Address [address] [place] [address] Care Team Providers Care Helix Coil Winder Name Role Phone Mustapha Hogue MD Primary Care Provider [phone] Note from [facility],non-owned Affiliates and Associated Physician Practices is amultiple site organization consisting of ambulatory clinics and hospital sitesin [place], [place], [place] and [place]. This disclosure is being madepursuant to the Care Everywhere program and may not contain all information available regarding this patient. Last updated 18.[facility] Allergies No known active allergies Medications * Be aware that medications may not be up to date on this document. Alwaysverify current medications with the patient. * escitalopram (Lexapro) 5 MG tablet(Started 07/13/2024) Take 1 (one) tablet by mouth once daily * ziprasidone (Geodon) 20 MG capsule(Started 07/13/2024) Take 1 (one) capsule by mouth 2 times daily with morning and evening meal Active Problems Problem Noted Date Diagnosed Date Fourth 04/24/2019 Anxiety 04/24/2019 Anemia affecting fourth 04/24/2019 Asthma affecting , antepartum 9 Genital herpes affecting , antepartum 0 04/24/2019 Social History Tobacco Use Types Packs/Day Years Used Date Smoking Tobacco: Never Smokeless Tobacco: Never Alcohol Use Standard Drinks/Week Comments Never 0 (1 standard drink = 0.6 oz pur e alcohol) Sex and Gender Information Value Date Recorded Sex Assigned at Not on file Gender Identity Not on file Sexual Orientation Not on file Care Teams Helix Coil Winder Relationship Specialty Start Date End Date Mustapha Hogue MD [address] [place] [id number] [facility] - General 08/13/22
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
--- OUTSIDE RECORDS SUMMARY | 2024-12-14 08:31 | XMS_ITS | Clinical Summary ---
Author Organization [facility] Address [address] [place] [address] Phone Care Team Providers Care Radiologist Chief Of Breast Imaging Name Role Phone Da Carreon MD Primary Care Provider Mustapha Hogue MD Unavailable [phone] Allergies No known active allergies Medications ondansetron (ZOFRAN-ODT) 4 MG TABLET DISPERSIBLE Take 1 Tablet by mouth every 8 hours as needed for Nausea - 1st line. 15 Tablet 09/28/2023 Active Social History Tobacco Use Types Packs/Day Years Used Date Smoking Tobacco: Former Cigarettes Smokeless Tobacco: Never Alcohol Use Standard Drinks/Week Comments No 0 (1 standard drink = 0.6 oz pur e alcohol) Comments Unknown Sex and Gender Information Value Date Recorded Sex Assigned at Not on file Legal Sex Female 10:43 PM CDT Gender Identity Not on file Sexual Orientation Not on file Last Filed Vital Signs Vital Sign Reading Time Taken Comments Blood Pressure 128/82 09/28/2023 8:30 PM HEAD BAKER Pulse 75 09/28/2023 8:30 PM HEAD BAKER Temperature 36.9 C (98.4 F) 09/28/2023 5:56 PM HEAD BAKER Respiratory Rate 16 09/28/2023 8:30 PM HEAD BAKER Oxygen Saturation 98% 09/28/2023 8:30 PM HEAD BAKER Inhaled Oxygen Concentration - - Weight 106.9 kg (235 lb 10.8 oz) 09/28/2023 5:56 PM HEAD BAKER Height 160 cm (5' 3 ) 09/28/2023 5:56 PM HEAD BAKER Body Mass Index 41.75 09/28/2023 5:56 PM HEAD BAKER Plan of Treatment Health Maintenance Due Date Last Done Comments Hepatitis C Virus (HCV) Screening 1994 Hepatitis B Immunization (1 of 3 - 19+ 3-dose series) 2013 Pap Smear 2015 Influenza Immunization (#1) 2024 SARS-COV-2 Immunization ( season) 2024 06/05/2022, 03/15/2021, 02/22/2021 Cervical Cancer Screening (CCS) 2024 HPV/Cotest 2024 Respiratory Syncytial Virus (RSV) Immunization (Adult) (1 - 1-dose 75+ series) 2069 DTaP/Tdap/Td Immunization Discontinued 2019, 07/05/2019 TdaP Immunization Completed 03/31/2020, 07/05/2019 Meningococcal Immunization (ACWY) Aged Out No longer eligible based on patient's age to complete this topic Pneumococcal Immunization Combined Aged Out No longer eligible based on patient's age to complete this topic Rotavirus Immunization Aged Out No lo nger eligible based on patient's age to complete this topic Insurance MEDICAID [place] MEDICAID [facility] Care Teams Radiologist Chief Of Breast Imaging Relationship Specialty Start Date End Date Da Carreon MD [address] [place] [phone] PCP - General Family Medicine 08/27/23 Mustapha Hogue MD [address] [place] [id number] Family Medicine 08/27/23
--- OUTSIDE RECORDS SUMMARY | 2024-12-14 08:31 | XMS_ITS | Clinical Summary ---
Author Organization [facility] Address [address] [place] [address] Care Team Providers Care An/Ssn 2 4 Operator Name Role Phone Mustapha Hogue MD Primary Care Provider [phone] Source Comments [facility],non-owned Affiliates and Associated Physician Practices is amultiple site organization consisting of ambulatory clinics and hospital sitesin [place], [place], [place] and [place]. This disclosure is being madepursuant to the Care Everywhere program and may not contain all information available regarding this patient. Last updated 18.[facility] Allergies No known active allergies Medications * Be aware that medications may not be up to date on this document. Alwaysverify current medications with the patient. Medication Sig Dispensed Refills Start Date End Date Status escitalopram (Lexapro) 5 MG tablet Take 1 (one) tablet by mouth once daily 07/13/2024 Active ziprasidone (Geodon) 20 MG capsule Take 1 (one) capsule by mouth 2 times daily with morning and evening meal 07/13/2024 Active Active Problems Problem Noted Date Diagnosed Date Fourth 04/24/2019 Anxiety 04/24/2019 Anemia affecting fourth 04/24/2019 Asthma affecting , antepartum 9 Genital herpes affecting , antepartum 0 04/24/2019 Encounters Date Type Department Care Team Description 09/24/2024 Telephone [facility] Weight Management Services [address] [place] [address] Odette Kauffman MD Appointment 09/17/2024 Telephone [facility] [address] [place] [phone] Odette Kauffman MD Appointment from Last 3 Months Social History Tobacco Use Types Packs/Day Years Used Date Smoking Tobacco: Never Smokeless Tobacco: Never Alcohol Use Standard Drinks/Week Comments Never 0 (1 standard drink = 0.6 oz pur e alcohol) Sex and Gender Information Value Date Recorded Sex Assigned at Not on file Gender Identity Not on file Sexual Orientation Not on file Plan of Treatment Health Maintenance Due Date Last Done Comments PAP SMEAR 1994 HIV SCREENING 2009 HEPATITIS C SCREENING 09/15/2012 DTAP/TDAP/TD VACCINES (1 - Tdap) 2013 HEPATITIS B VACCINE (1 of 3 - 19+ 3-dose series) 2013 PNEUMOCOCCAL VACCINE (1 of 2 - PCV) 2013 COVID-19 VACCINE ( - 2023-2 5 season) 2024 INFLUENZA VACCINE (#1) 2024 DEPRESSION SCREENING 10/07/2024 ZOSTER VACCINE (1 of 2) 2044 HIB VACCINE Aged Out No longer eligi ble based on patient's age to complete this topic HPV VACCINE Aged Out No longer eligi ble based on patient's age to complete this topic MENINGOCOCCAL (Group B) VACCINE Aged Out No longer eligible based on patient's age to complete this topic MENINGOCOCCAL VACCINE Aged Out No barbara aleksandr eligible based on patient's age to complete this topic Care Teams An/Ssn 2 4 Operator Relationship Specialty Start Date End Date Hogue, Laurain C, MD [address] [place] [address] PCP - General 08/13/22
--- OUTSIDE RECORDS SUMMARY | 2024-12-14 08:31 | XMS_ITS | Referral Summary ---
Author Organization [facility] Address [address] [place] [address] Care Team Providers Care Retail Consultant Name Role Phone Mustapha Hogue MD Primary Care Provider [phone] Source Comments [facility],non-owned Affiliates and Associated Physician Practices is amultiple site organization consisting of ambulatory clinics and hospital sitesin [place], [place], [place] and [place]. This disclosure is being madepursuant to the Care Everywhere program and may not contain all information available regarding this patient. Last updated 18.[facility] Encounters Date Type Department Care Team Description 09/24/2024 Telephone [facility] Weight Management Services [address] [place] [phone] Odette Kauffman MD Appointment 09/17/2024 Telephone [facility] [address] [place] [phone] Odette Kauffman MD Appointment from Last 3 Months Allergies No known active allergies Medications * [...] Orientation Not on file Plan of Treatment Not on file Care Teams Retail Consultant Relationship Specialty Start Date End Date Mustapha Hogue MD [address] [place] [phone] PCP - General 08/13/22
--- OUTSIDE RECORDS SUMMARY | 2024-12-14 08:31 | XMS_ITS | Continuity of Care Document ---
Author Organization [facility] Address [address] [place] [address] Phone Care Team Providers Care Event Management Consultant Name Role Phone Management, Case Unavailable Unavailable Unavailable Unavailable Unavailable Allergies, Adverse Reactions, Alerts Substance Reaction Status Criticality No Known allergies Medications Medication Instructions Dosage Effective Dates (start - stop) Status Comments ferrous sulfate 325 mg (65 mg iron) Tab take 1 tablet (325MG) by ORAL route every day 325 MG - Active pyridoxine 50 mg Tab take one tab three times every day as needed for nausea - Active promethazine 25 mg Tab take one three ti mes daily as needed for vomiting - Active Miralax 17 gram Oral Powder Packet take 1 packet (17G) by ORAL route every day mixed with 8 oz. drink - Active Vitamin Tab take 1 tablet by or al route every day - Active Procedures Procedure Date care, at-risk assessment care, at-risk enhanced service; antepartum management HEALTH RISK ASSESSMENT TEST SKIN TEST; TUBERCULOSIS, INTRADERMAL Nov COLLECTION OF VENOUS BLOOD BY VENIPUNCTU RE OFFICE/OUTPATIENT VISIT, NEW Advance Directives Directive Yes / No Effective Date File Name No Information Encounters Encounter Description Practice Location Reason(s) For Visit Diagnoses Date Provider Providers Copied on Encounter [facility] , [address], [place], [place], [id number], [place] tel:[phone] [facility] No Information Management Case. [address], [place], [place], [address], [place]. tel:[phone] HEALTH RISK ASSESSMENT TEST [facility] , [address], [place], [place], [address], tel:[phone] [facility] pn intake (chief complaint) No Information Management Case. [address], [place], [place], [address], [place]. tel:[phone] OFFICE/OUTPAT IENT VISIT, NEW [facility] , [address], [place], [place], [address], tel:[phone] [facility] No Information No Information Family History Family Member Type Diagnosis Age At Onset No Information Payers Payer name Insurance type Covered green party ID Authoryolandaa ana rosakatharina(s) Medicaid - [facility] [id number] Social History Type Description Quantity Date Captured Comments Sex Female Smoking Status No Information Chief Complaint And Reason For Visit No Information Reason For Referral Reason For Referral No Information Plan Of Treatment Date Type Action Status Referral Referred To: [facility] [address] [place], [phone] Ordered: Referral: [facility]. Radiology. ordered History Of Present Illness Encounter Date Complaint History Of Prese nt Illness No Information Functional Status Date Functional Assessmen t No Information Instructions Date Instruction Additional Infor mation No Information Assessments Type Assessment Date No Information Patient Care Teams Name Effective Dates (start - stop) Status Members No Information
--- OUTSIDE RECORDS SUMMARY | 2024-12-14 08:31 | XMS_ITS | Clinical Summary ---
Author Organization [facility] Address [address] [place] [address] Care Team Providers Care Chief Medical Technologist Name Role Phone No, Physician Unavailable Nestor Boss MD Unavailable + [phone] No, Physician Primary Care Provider [phone] Allergies Active Allergy Reactions Criticality Noted Date [...] 06/27/2022 Assessment & Plan (12/14/2022 12:49 PM RN CLINICAL DOCUMENTATION): - chronic, recurrent - had EMG/NCV as [...] healthier Assessment & Plan (12/14/2022 12:47 PM RN CLINICAL DOCUMENTATION): Wt Readings from Last 3 Encounters: 12/14/22 [...] 06/26/2022 Assessment & Plan (12/14/2022 1:10 PM RN CLINICAL DOCUMENTATION): - chronic, not at goal - issues [...] --> she was seeing a psychiatrist in [place] but was told she cannot see them as she is no longer living in [place], now walker appointment with a new psychiatrist [...] forward Assessment & Plan (12/14/2022 1:12 PM RN CLINICAL DOCUMENTATION): - chronic, improved but not well controlled [...] 06/26/20 Assessment & Plan (08/31/2020 4:36 AM RN CLINICAL DOCUMENTATION): Currently resolved. Patient would like to the try clear liquid diet at this time. Will advance as tolerated. P.r.n. Zofran Acetaminophen adverse reaction 08/30/2020 06/26/2022 Assessment & Plan (08/31/2020 4:39 AM RN CLINICAL DOCUMENTATION): Exact amount of Tylenol ingested is unclear as patient appears to be an inconsistent historian. Patient's Tylenol level peaked at 16.1. Repeat was less than 15. LFTs remain normal. INR remains stable. Patient counseled on the importance of not exceeding 8 tablets of extra-strength Tylenol daily as it can lead to liver failure. Dentalgia 07/28/2020 06/26/2022 Assessment & Plan (08/31/2020 4:39 AM RN CLINICAL DOCUMENTATION): That has been present for the last [...] ed: Patient Refused),12/06/2021(Deferred: Patient Refused) Tdap 03/31/2020,07/05/2019 Surgical History Surgery Date Site/Laterality Comments CLAVICLE SURGERY 10/07/2009 - 10/06/2010 Right tripped over fence FEMUR FRACTURE SURGERY 10/07/2004 - 10/06/2005 Left FRACTURE SURGERY CHOLECYSTECTOMY 04/10/2022 Medical History Medical History Date Comments Herpes Urinary tract infection Anemia Asthma Family History Medical History Relation Name Comments ADD / ADHD Father Asthma Father Bipolar disorder Father Heart disease Father Substance Abuse Father Cancer Maternal Grandfather Lung disease Maternal Grandfather Anemia Maternal Grandmother Heart disease Maternal Grandmother Seizures Maternal Grandmother Asthma Mother Autism spectrum disorder Mother Developmental delay Mother Heart disease Mother Hypertension Mother Kidney disease Mother Mental illness Mother Heart disease Paternal Grandfather Lung disease Paternal Grandfather Cancer Paternal Grandmother Psoriasis Paternal Grandmother Relation Name Status Comments Father Alive Maternal Grandfather Maternal Grandmother Mother Alive Paternal Grandfather Paternal Grandmother Alive Social History Tobacco Use Types Packs/Day Years [...] on file Legal Sex Female 9:12 AM RN CLINICAL DOCUMENTATION Gender Identity Not on file Sexual Orientation Not on file Obstetrics History Para Term AB IAB SAB Ectopic Multiple Livin g Live Births 6 4 3 1 2 2 0 4 4 Date Outcome GA Total Labor Labor/2nd/3rd Weight Sex Type Anes PTL Ashley A1 A5 Name Clin 2010 Term F Vag-S pont Livin g 2011 Term F Vag-S pont Livin g 2016 SAB 2018 Term 40w 3d 1h 22m 1h 10m/0h 08m/0h 04m 3.515 kg (7 lb 12 oz) F Vag-S pont None N Livin g 4 8 EDIS ,GIRL DARION Keyes , Jesus Alberto Hooker MD Complications:Precipitous La bor (<3 hours) Delivery Location:[facility]) 2019 35w 2d 4h 18m 3h 54m/0h 19m/0h 05m 3.206 kg (7 lb 1.1 oz) F Vag-S pont Epidur al Y Livin g 8 9 RAMOS ,GIRL DARION daly, Linda Gore MD Complications:None Delivery Location:[facility]) Last Filed Vital Signs Vital Sign Reading [...] 05/27/2023 11:58 AM CDT Plan of Treatment Health Maintenance Due Date Last Done Comments Cervical Cancer Screening 1994 Varicella Vaccines (1 of 2 - 13+ 2-dose series) 2007 Hepatitis B Screening 2012 Pneumococcal vaccine <65 (1 of 2 - PCV) 2013 Depression Screening 01/22/2024 01/21/2023, 08/22/2022, 06/26/2022 Regular Well Visit/Exam 18-64 05/27/2024 05/27/2023 Covid-19 Vaccine ( - 2023-2 5 season) 2024 06/05/2022, 03/15/2021, 02/22/2021 Influenza Vaccine (#1) 2024 DTaP/Tdap/Td Vaccine (3 - Td or Tdap) 03/31/2030 03/31/2020, 07/05/2019 Hepatitis C Screening Completed 01/21/2023 HPV Vaccines Aged Out No longer eligi ble based on patient's age to complete this topic Procedures Procedure Name Priority Date/Time Associated Diagnosis [...] last revised on 2019. Testing performed by: [facility], [address] [place] [address], [place]., [address] Blood 01/21/2023 3:21 PM CDT 01/22/2023 9:37 AM CDT Da Carreon MD LAB MICROBIOLOGY - GENE RAL ORDERABLES Final Result [facility] ([place]) [address] [facility] Department [place] [address] from Last 3 Months or Most Recently Relevant to Health Maintenance Insurance Member Subscriber Plan / Payer (Ef fective 2018-Present) Name:Martha Ramos Ma Relation to Subscriber:Self Name:Martha Ramos Ma Payer ID:[id number] (NAIC) Type:MEDICAID RISK OTHER Address: [address] BUREAU OF DISABILITY Advance Directives For more information, please contact: [phone] * Full Code (Latest Code Status on [...] in case of cardiopulmonary arrest Care Teams Chief Medical Technologist Relationship Specialty Start Date End Date No, Physician PCP - General 07/27/24 No, Physician 08/31/20 Nestor Boss MD [address] [place] [address] DR MOSS [address] [address] Lift Mechanic Obstetrics and Gynecology 01/12/21
[2024-12-14 08:41] VITALS: BP 135/80; PULSE 78; RESP 18; TEMP 36.6; O2SAT 95
--- OUTSIDE RECORDS SUMMARY | 2024-12-14 09:13 | XMS_ITS | Clinical Summary ---
Author Organization [facility] Address [address] [place] [address] Care Team Providers Care Medical Transport Specialist Name Role Phone Mustapha Hogue MD Primary Care Provider [phone] Source Comments [facility],non-owned Affiliates and Associated Physician Practices is amultiple site organization consisting of ambulatory clinics and hospital sitesin [place], [place], [place] and [place]. This disclosure is being madepursuant to the Care Everywhere program and may not contain all information available regarding this patient. Last updated 18.[facility] Allergies No known active allergies Medications * [...] Type Department Care Team Description 09/24/2024 Telephone [facility] Weight Management Services [address] [place] [address] Odette Kauffman MD Appointment 09/17/2024 Telephone [facility] Services [address] [place] [phone] Odette Kauffman MD Appointment from Last 3 [...] age to complete this topic Care Teams Medical Transport Specialist Relationship Specialty Start Date End Date Hogue, Laurain C, MD [address] [place] [address] PCP - General 08/13/22
--- OUTSIDE RECORDS SUMMARY | 2024-12-14 09:13 | XMS_ITS | Clinical Summary ---
Author Organization [facility] Address [address] [place] [address] Care Team Providers Care Teacher Of The Visually Impaired Name Role Phone No, Physician Unavailable Nestor Boss MD Unavailable + [phone] No, Physician Primary Care Provider [phone] Allergies Active Allergy Reactions Criticality Noted Date [...] 06/27/2022 Assessment & Plan (12/14/2022 12:49 PM RELIEF MASTER): - chronic, recurrent - had EMG/NCV as [...] healthier Assessment & Plan (12/14/2022 12:47 PM RELIEF MASTER): Wt Readings from Last 3 Encounters: 12/14/22 [...] 06/26/2022 Assessment & Plan (12/14/2022 1:10 PM RELIEF MASTER): - chronic, not at goal - issues [...] --> she was seeing a psychiatrist in [place] but was told she cannot see them as she is no longer living in [place], now walker appointment with a new psychiatrist [...] forward Assessment & Plan (12/14/2022 1:12 PM RELIEF MASTER): - chronic, improved but not well controlled [...] 06/26/20 Assessment & Plan (08/31/2020 4:36 AM RELIEF MASTER): Currently resolved. Patient would like to the try clear liquid diet at this time. Will advance as tolerated. P.r.n. Zofran Acetaminophen adverse reaction 08/30/2020 06/26/2022 Assessment & Plan (08/31/2020 4:39 AM RELIEF MASTER): Exact amount of Tylenol ingested is unclear as patient appears to be an inconsistent historian. Patient's Tylenol level peaked at 16.1. Repeat was less than 15. LFTs remain normal. INR remains stable. Patient counseled on the importance of not exceeding 8 tablets of extra-strength Tylenol daily as it can lead to liver failure. Dentalgia 07/28/2020 06/26/2022 Assessment & Plan (08/31/2020 4:39 AM RELIEF MASTER): That has been present for the last [...] on file Legal Sex Female 9:12 AM RELIEF MASTER Gender Identity Not on file Sexual Orientation [...] last revised on 2019. Testing performed by: [facility], [address] [place] [address], [place]., [address] Blood 01/21/2023 3:21 PM CDT 01/22/2023 9:37 AM CDT Da Carreon MD LAB MICROBIOLOGY - GENE RAL ORDERABLES Final Result [facility] ([place]) 1 [facility] Department [place] [address] from Last 3 Months or Most Recently Relevant to Health Maintenance Insurance Member Subscriber Plan / Payer (Ef fective 2018-Present) Name:Martha Ramos Ma Relation to Subscriber:Self Name:Martha Ramos Ma Payer ID:[id number] (NAIC) Type:MEDICAID RISK OTHER Address: [address] BUREAU OF DISABILITY Advance Directives For more information, please contact: [phone] * Full Code (Latest Code Status on [...] in case of cardiopulmonary arrest Care Teams Teacher Of The Visually Impaired Relationship Specialty Start Date End Date No, Physician PCP - General 07/27/24 No, Physician 08/31/20 Nestor Boss MD [address] [place] [address] [address] MOSS [address] [address] Filemaker Developer Obstetrics and Gynecology 01/12/21
--- OUTSIDE RECORDS SUMMARY | 2024-12-14 09:13 | XMS_ITS | Referral Summary ---
Author Organization [facility] Address [address] [place] [address] Care Team Providers Care Law Enforcement Instructor Name Role Phone Mustapha Hogue MD Primary Care Provider [phone] Source Comments [facility],non-owned Affiliates and Associated Physician Practices is amultiple site organization consisting of ambulatory clinics and hospital sitesin [place], [place], [place] and [place]. This disclosure is being madepursuant to the Care Everywhere program and may not contain all information available regarding this patient. Last updated 18.[facility] Encounters Date Type Department Care Team Description 09/24/2024 Telephone [facility] Weight Management Services [address] [place] [phone] Odette Kauffman MD Appointment 09/17/2024 Telephone [facility] Weight Management Services [address] [place] [phone] Odette Kauffman MD Appointment from Last 3 [...] of Treatment Not on file Care Teams Law Enforcement Instructor Relationship Specialty Start Date End Date Mustapha Hogue MD [address] [place] [address] PCP - General 08/13/22
--- OUTSIDE RECORDS SUMMARY | 2024-12-14 09:13 | XMS_ITS | Patient Health Summary ---
Author Organization [facility] Address [address] [place] [address] Care Team Providers Care Ceramic Maker Demonstrator Name Role Phone Mustapha Hogue MD Primary Care Provider [phone] Note from [facility],non-owned Affiliates and Associated Physician Practices is amultiple site organization consisting of ambulatory clinics and hospital sitesin [place], [place], [place] and [place]. This disclosure is being madepursuant to the Care Everywhere program and may not contain all information available regarding this patient. Last updated 18.[facility] Allergies No known active allergies Medications [...] Sexual Orientation Not on file Care Teams Ceramic Maker Demonstrator Relationship Specialty Start Date End Date Mustapha Hogue MD [address] [place] [phone] [facility] - General 08/13/22
--- OUTSIDE RECORDS SUMMARY | 2024-12-14 09:13 | XMS_ITS | Clinical Summary ---
Author Organization [facility] Address [address] [place] [address] Phone Care Team Providers Care Feed House Supervisor Name Role Phone Da Carreon MD Primary Care Provider Mustapha Hogue MD Unavailable [phone] Allergies No known active allergies Medications ondansetron [...] Comments Blood Pressure 128/82 09/28/2023 8:30 PM [facility] Pulse 75 09/28/2023 8:30 PM [facility] Temperature 36.9 C (98.4 F) 09/28/2023 5:56 PM [facility] Respiratory Rate 16 09/28/2023 8:30 PM [facility] Oxygen Saturation 98% 09/28/2023 8:30 PM [facility] Inhaled Oxygen Concentration - - Weight 106.9 kg (235 lb 10.8 oz) 09/28/2023 5:56 PM [facility] Height 160 cm (5' 3 ) 09/28/2023 5:56 PM [facility] Body Mass Index 41.75 09/28/2023 5:56 PM [facility] Plan of Treatment Health Maintenance Due Date [...] this topic Insurance MEDICAID [place] MED[place]ID [facility] Care Teams Feed House Supervisor Relationship Specialty Start Date End Date Da Carreon MD [address] [place] [address] PCP - General Family Medicine 08/27/23 Mustapha Hogue MD [address] [place] [address] Family Medicine 08/27/23
--- OUTSIDE RECORDS SUMMARY | 2024-12-14 09:13 | XMS_ITS | Referral Summary ---
Author Organization [facility] Address [address] [place] [address] Care Team Providers Care Programs Manager Name Role Phone No, Physician Unavailable Nestor Boss MD Unavailable + [phone] No, Physician Primary Care Provider Allergies Active Allergy Reactions Criticality Noted Date [...] 06/27/2022 Assessment & Plan (12/14/2022 12:49 PM HEALTHCARE ARCHITECT): - chronic, recurrent - had EMG/NCV as [...] healthier Assessment & Plan (12/14/2022 12:47 PM HEALTHCARE ARCHITECT): Wt Readings from Last 3 Encounters: 12/14/22 [...] 06/26/2022 Assessment & Plan (12/14/2022 1:10 PM HEALTHCARE ARCHITECT): - chronic, not at goal - issues [...] --> she was seeing a psychiatrist in [place] but was told she cannot see them as she is no longer living in [place], now walker appointment with a new psychiatrist [...] forward Assessment & Plan (12/14/2022 1:12 PM HEALTHCARE ARCHITECT): - chronic, improved but not well controlled [...] 06/26/20 Assessment & Plan (08/31/2020 4:36 AM HEALTHCARE ARCHITECT): Currently resolved. Patient would like to the try clear liquid diet at this time. Will advance as tolerated. P.r.n. Zofran Acetaminophen adverse reaction 08/30/2020 06/26/2022 Assessment & Plan (08/31/2020 4:39 AM HEALTHCARE ARCHITECT): Exact amount of Tylenol ingested is unclear as patient appears to be an inconsistent historian. Patient's Tylenol level peaked at 16.1. Repeat was less than 15. LFTs remain normal. INR remains stable. Patient counseled on the importance of not exceeding 8 tablets of extra-strength Tylenol daily as it can lead to liver failure. Dentalgia 07/28/2020 06/26/2022 Assessment & Plan (08/31/2020 4:39 AM HEALTHCARE ARCHITECT): That has been present for the last [...] on file Legal Sex Female 9:12 AM HEALTHCARE ARCHITECT Gender Identity Not on file Sexual Orientation [...] last revised on 2019. Testing performed by: [facility], [address] [place] [address]., [id number] Blood 01/21/2023 3:21 PM CDT 01/22/2023 9:37 AM CDT us Da Carreon MD LAB MICROBIOLOGY - GENE RAL ORDERABLES Final Result [facility] ([place]) 1 [facility] [place] [address] from Last 3 Months or Most Recently Relevant to Health Maintenance Insurance [facility] Member Subscriber Plan / Payer (Ef fective 2018-Present) Name:Martha Ramos Ma Relation to Subscriber:Self Name:Martha Ramos Ma Payer ID:[id number] (NAIC) Type:MEDICAID [id number] OTHER Address: [address] [employer] Advance Directives For more information, please contact: [phone] * Full Code (Latest Code Status on [...] in case of cardiopulmonary arrest Care Teams Programs Manager Relationship Specialty Start Date End Date No, Physician PCP - General 07/27/24 No, Physician 08/31/20 Nestor Boss MD [address] [place] [address] [place] [address] Stereo Operator Obstetrics and Gynecology 01/12/21
== END 2024-12-14 08:41 | disposition home or self-care (01) ==
LOC: CHSED 08:39
PROVIDERS: Emergency Provider Emergency Medicine; PCP Family Medicine
DX: O26.891 Other specified pregnancy related conditions, first trimester (principal); R23.8 Other skin changes; Z3A.00 Weeks of gestation of pregnancy not specified
CPT/HCPCS: 99281

== ENCOUNTER 2025-01-01 17:41 | Emergency (ER) | payer OTHER, SELFPAY ==
--- OUTSIDE RECORDS SUMMARY | 2025-01-01 17:44 | XMS_ITS | Referral Summary ---
Author Organization [facility] Address [address] [place] [address] Care Team Providers Care Live Out Nanny Name Role Phone No, Physician Unavailable Nestor Boss MD Unavailable [phone] Vickey Bassett MD Primary Care Provider + [phone] Encounters Date Type Department Care Team Description 12/22/2024 2:26 AM CDT - 12/22/2024 4:59 AM CDT Emergency [facility] Emergency Department [address] [place] [address] Ruy Keys MD 10 weeks gestation of (Primary Dx) Discharge Disposition: Discharge to home or self care from Last 3 Months Allergies Active Allergy Reactions Criticality Noted Date [...] immunizations reviewed - Cervical Cancer screening: has RODRIGO, has an upcoming appointment in August - [...] 06/27/2022 Assessment & Plan (12/14/2022 12:49 PM CRITICAL CARE NURSE): - chronic, recurrent - had EMG/NCV as [...] healthier Assessment & Plan (12/14/2022 12:47 PM CRITICAL CARE NURSE): Wt Readings from Last 3 Encounters: 12/14/22 [...] counseling, exercise counseling and education provided S/P CRUZ (status post loop e lectrosurgical excision procedure) [...] 06/26/2022 Assessment & Plan (12/14/2022 1:10 PM CRITICAL CARE NURSE): - chronic, not at goal - issues [...] also will be seeing a therapist, via [employer] [facility] --> she was seeing a psychiatrist in [place] but was told she cannot see them as she is no longer living in [place], now walker appointment with a new psychiatrist [...] forward Assessment & Plan (12/14/2022 1:12 PM CRITICAL CARE NURSE): - chronic, improved but not well controlled [...] lived - recommend psychiatric evaluation, referral placed Estimated Date of Delivery Comme nts Yes 07/24/2025 Resolved Problems Problem Noted Date Diagnosed Date Resolved Date Acute cholecystitis 04/10/2022 06/26/20 Nausea and vomiting 08/31/2020 06/26/20 Assessment & Plan (08/31/2020 4:36 AM CRITICAL CARE NURSE): Currently resolved. Patient would like to the try clear liquid diet at this time. Will advance as tolerated. P.r.n. Zofran Acetaminophen adverse reaction 08/30/2020 06/26/2022 Assessment & Plan (08/31/2020 4:39 AM CRITICAL CARE NURSE): Exact amount of Tylenol ingested is unclear as patient appears to be an inconsistent historian. Patient's Tylenol level peaked at 16.1. Repeat was less than 15. LFTs remain normal. INR remains stable. Patient counseled on the importance of not exceeding 8 tablets of extra-strength Tylenol daily as it can lead to liver failure. Dentalgia 07/28/2020 06/26/2022 Assessment & Plan (08/31/2020 4:39 AM CRITICAL CARE NURSE): That has been present for the last [...] making you feel afraid or unsafe? Denies 12/22/2024 Estimated Date of Delivery Comme nts Yes 07/24/2025 Sex and Gender Information Value Date Recorded Sex Assigned at Not on file Legal Sex Female 9:12 AM CRITICAL CARE NURSE Gender Identity Not on file Sexual Orientation Not on file Last Filed Vital Signs Vital Sign Reading Time Taken Comments Blood Pressure 137/71 12/22/2024 4:58 AM CDT Pulse 72 12/22/2024 4:58 AM CDT Temperature 36.7 C (98 F) 12/22/2024 4:58 AM CDT Respiratory Rate 16 12/22/2024 4:58 AM CDT Oxygen Saturation 99% 12/22/2024 4:58 AM CDT Inhaled Oxygen Concentration - - Weight 103.4 kg (228 lb) 12/22/2024 12:21 AM CDT Height 160 cm (5' 3 ) 12/22/2024 12:21 AM CDT Body Mass Index 40.39 12/22/2024 12:21 AM CDT Plan of Treatment Not on file Procedures Procedure Name Priority Date/Time Associated Diagnosis Comments EGFR STAT 12/22/2024 12:45 AM CDT URINALYSIS, MICROSCOPIC ONLY STAT 12/22/2024 12:45 AM CDT DIFFERENTIAL AUTO STAT 12/22/2024 12: 45 AM CDT ANTIBODY SCREEN Timed 12/22/2024 12:45 AM CDT ABO/RH Timed 12/22/2024 12:45 AM CDT COMPREHENSIVE METABOLIC PANEL STAT 12/22/2024 12:45 AM CDT CBC WITH AUTO DIFFERENTIAL STAT 12/22/2024 12:45 AM CDT HCG, BLOOD, QUANTITATIVE STAT 12/22/2024 12:45 AM CDT TYPE AND SCREEN Timed 12/22/2024 12:45 AM CDT URINALYSIS AND REFLEX TO MICROSCOPIC AND CULTURE STAT 12/22/2024 12:45 AM CDT HEPATITIS C ANTIBODY Routine 01/21/2023 3:21 PM CDT Right wrist pain from Last 3 Months or Most Recently Relevant to Health Maintenance Results * eGFR (12/22/2024 12:45 AM CDT) eGFR >90 >=60 mL/min/1. 73 m2 Comment: Interpretive Data Reference Interval Normal >/= 90 mL/min/1.73m2 Mildly decreased* 60 - 89 mL/min/1.73m2 Mildly to moderately decreased 45 - 59 mL/min/1.73m2 Moderately to severely decreased 30 - 44 mL/min/1.73m2 Severely decreased 15 - 29 mL/min/1.73m2 Kidney Failure < 15 mL/min/1.73m2 *Relative to young adult level Estimated glomerular filtration rate is determined by the 2020 CKD-EPI equation recommended by the National Kidney Foundation (A Unifying Approach to GFR Estimation: Recommendations of the NKF-ASK Task Force on Reassessing the Inclusion of Race in Diagnosing Kidney Disease, JASN 2020). The CKD-EPI equation should not be used for patients with unstable renal function and has not been validated in children and those over 70. Current interpretive data was last reviewed 2021. Blood 12/22/2024 12:4 5 AM CDT 12/22/2024 12:50 AM CDT Ruy Keys MD LAB BLOOD ORDERABLES Final R esult [facility] 1 [facility] Department [place] [address] * (ABNORMAL) Differential, auto (12/22/2024 12:45 AM CDT) Neutrophil abs 6.2 1.5 - 6.5 K/cumm Imm gran abs 0.0 0.0 - 0.1 K/cumm [facility] ([facility]) Lymphocyte abs 4.0(H) 0.8 - 3.3 K/cumm [facility] ([place]) Monocyte abs 0.4 0.2 - 0.8 K/cumm [facility] ([place]) Eosinophil abs 0.2 0.0 - 0.5 K/cumm [facility] ([place]) Basophil abs 0.0 0.0 - 0.1 K/cumm [facility] ([facility]) Neutrophil pct 57.2 % [facility] ([place]) Comment: Interpretive Data Percent cell count reference ranges are not reported, since discordance with absolute values may lead to misinterpretation of CBC data. Current Interpretive Data was last revised on 2018. Imm gran pct 0.4 % [facility] ([place]) Comment: Interpretive Data Percent cell count reference ranges are not reported, since discordance with absolute values may lead to misinterpretation of CBC data. Current Interpretive Data was last revised on 2018. Lymphocyte pct 36.7 % [facility] ([place]) Comment: Interpretive Data Percent cell count reference ranges are not reported, since discordance with absolute values may lead to misinterpretation of CBC data. Current Interpretive Data was last revised on 2018. Monocyte pct 3.9 % [facility] ([place]) Comment: Interpretive Data Percent cell count reference ranges are not reported, since discordance with absolute values may lead to misinterpretation of CBC data. Current Interpretive Data was last revised on 2018. Eosinophil pct 1.4 % [facility] ([facility]) Comment: Interpretive Data Percent cell count reference ranges are not reported, since discordance with absolute values may lead to misinterpretation of CBC data. Current Interpretive Data was last revised on 2018. Basophil pct 0.4 % [facility] ([place]) Comment: Interpretive Data Percent cell count reference ranges are not reported, since discordance with absolute values may lead to misinterpretation of CBC data. Current Interpretive Data was last revised on 2018. Blood 12/22/2024 12:4 5 AM CDT 12/22/2024 12:50 AM CDT us Ruy Keys MD LAB BLOOD ORDERABLES Final R esult [facility] ([place]) 1 [facility] Department [place] [address] * (ABNORMAL) Urinalysis reflex to microscopic and culture Urine (12/22/2024 12:45 AM CDT) Color, ur Yellow Yellow Clarity, ur Turbid(A) Clear [facility] ([place]) Specific gravity, ur 1.020 1.003 - 1.030 [facility] ([place]) pH, urine 6.0 [facility] ([place]) Comment: Interpretive Data U rine pH is affected by diet, medications, systemic acid-base disturbances, and renal tubular function. pH may affect urinary stone formation. For example, urine pH below 6.0 may help reduce the tendency for calcium phosphate stones and pH greater than 6.0 may reduce the tendency for uric acid stone formation. Source: [facility] Current Interpretive Data was last revised on 2017 Protein, ur ql Negative Negative [facility] ([place]) Glucose, ur ql Negative Negative [facility] ([place]) Ketones, ur Negative Negative [facility] ([place]) Bilirubin, ur Negative Negative [facility] ([place]) Blood, ur Negative Negative [facility] ([place]) Urobilinogen, ur <2.0 <2.0 mg/dL [facility] ([place]) Nitrite, ur Negative Negative [facility] ([place]) Leukocyte esterase, ur 2+(A) Negative [facility] ([place]) UA reflex comment Reflex to microscopic UA will be performed. [facility] ([place]) Urine 12/22/2024 12:4 5 AM CDT 12/22/2024 12:50 AM CDT us Ruy Keys MD LAB MICROBIOLOGY - GENERAL O RDERABLES Final Result [facility] ([place]) 1 [facility] Department [place] [address] * (ABNORMAL) CBC with auto differential (12/22/2024 12:45 AM CDT) WBC 10.8(H) 3.8 - 9.9 K/cumm Hgb 11.4(L) 11.9 - 15.5 g/dL [facility] ([place]) Hct 33.7(L) 35.6 - 45.5 % [facility] ([place]) Plt 302 150 - 400 K/cumm [facility] ([place]) MPV 9.2 9.1 - 12.3 fL [facility] ([place]) RBC 3.81(L) 3.90 - 5.20 M/cumm [facility] ([place]) MCV 88.5 81.3 - 96.4 fL [facility] ([place]) MCH 29.9 27.1 - 33.3 pg [facility] ([place]) MCHC 33.8 32.3 - 35.7 g/dL [facility] ([place]) RDW CV 13.5 11.1 - 14.9 % [facility] ([place]) RDW SD 43.8 35.7 - 48.1 fL [facility] ([place]) NRBC abs 0.00 0.00 - 0.01 K/cumm [facility] ([place]) Blood 12/22/2024 12:4 5 AM CDT 12/22/2024 12:50 AM CDT Ruy Keys MD LAB BLOOD ORDERABLES Final R esult [facility] ([place]) 1 [facility] [place] [address] * ABO/Rh (12/22/2024 12:45 AM CDT) ABO/Rh A Positive Blood 12/22/2024 12:4 5 AM CDT 12/22/2024 12:50 AM CDT Narrative [facility] ([facility]) - 12/22/2024 1:56 AM CDT Has the patient had Daratumumab or Isatuximab in the past 6 months?->Unknown Ruy Keys MD LAB BLOOD BANK TEST ORDERABL ES Final Result Performing Organization Address City/[facility]/ZIP Co de Phone Number [facility] ([place]) 1 [facility] [place] [address] * (ABNORMAL) Urinalysis, microscopic only (12/22/2024 12:45 AM CDT) WBC, ur 0-5 0 - 5 /HPF RBC, ur 0-2 0 - 2 /HPF [facility] ([place]) Epithelial cells, squamous, ur 21-50(A) 0 - 5 /HPF [facility] ([place]) Bacteria, ur Trace(A) [facility] ([place]) Mucous, ur Present(A) [facility] ([place]) Culture Reflex Comment Reflex conditions for urine culture (WBC >10) not met. [facility] ([place]) Urine 12/22/2024 12:4 5 AM CDT 12/22/2024 12:50 AM CDT Ruy Keys MD LAB URINE ORDERABLES Final R esult Performing Organization Address City/[facility]/ZIP Co de Phone Number [facility] ([place]) 1 [facility] [place] [address] * Antibody screen (12/22/2024 12:45 AM CDT) Pathologist [facility] Ken, indirect, Gel Interpretation Negative ABSC Blood 12/22/2024 12:4 5 AM CDT 12/22/2024 12:50 AM CDT Narrative [facility] ([place]) - 12/22/2024 1:56 AM CDT Has the patient had Daratumumab or Isatuximab in the past 6 months?->Unknown Ruy Keys MD LAB BLOOD BANK TEST ORDERABL ES Final Result [facility] ([place]) [address] [place] [address] * (ABNORMAL) hCG, blood, quantitative (12/22/2024 12:45 AM CDT) hCG, quant 7,633.0(H ) 0.0 - 5.0 IUnits/L Comment: Interpretive Data Male: < 5 IU/L Non- premenopausal Female: <5 IU/L The Erick hCG Beta Quant assay procedure was used. Results from different manufacturers or methods may not be comparable. Serial testing should be performed using the same method. Interpretive Data was last revised on 2023 Blood 12/22/2024 12:4 5 AM CDT 12/22/2024 12:50 AM CDT Ruy Keys MD LAB BLOOD ORDERABLES Edited Result - Final [facility] ([place]) 1 [facility] [place] [address] * (ABNORMAL) Comprehensive metabolic panel (12/22/2024 12:45 AM CDT) Sodium 136 135 - 145 mmol/L Potassium, pl 3.7 3.3 - 4.9 mmol/L [facility] ([place]) Chloride 101 97 - 110 mmol/L [facility] ([place]) CO2 20(L) 22 - 32 mmol/L [facility] ([place]) Anion gap 15 2 - 15 mmol/L [facility] ([place]) BUN 8 6 - 25 mg/dL [facility] ([place]) Creatinine 0.47(L) 0.60 - 1.10 mg/dL [facility] ([place]) Glucose 109 70 - 199 mg/dL [facility] ([place]) Comment: Interpretive Data Fasting glucose >/= 126 mg/dl is diagnostic for diabetes. Fasting is defined as no caloric intake for at least 8 hours. Fasting glucose between 100 mg/dl to 125 mg/dl is diagnostic of prediabetes. In a patient with classic symptoms of hyperglycemia or hyperglycemic crisis, a random glucose >/= 200 mg/dl is diagnostic for diabetes. In the absence of unequivocal hyperglycemia, results should be confirmed by repeat testing. The classification and Diagnosis of Diabetes Diabetes Care 2021; 46: S19-S40. Current interpretive data was last revised 2022. Calcium 10.0 8.5 - 10.3 mg/dL [facility] ([facility]) Bilirubin, total 0.3 0.1 - 1.2 mg/dL [facility] ([place]) Protein, pl 7.5 6.5 - 8.5 g/dL [facility] Albumin 4.1 3.5 - 5.0 g/dL [facility] Alk phos 74 40 - 130 Units/L [facility] ([place]) ALT 13 7 - 45 Units/L [facility] ([place]) AST 14 10 - 45 Units/L [facility] Blood 12/22/2024 12:4 5 AM CDT 12/22/2024 12:50 AM CDT us Ruy Keys MD LAB BLOOD ORDERABLES Final R esult Performing Organization Address City/[facility]/ZIP Co de Phone Number [facility] ([place]) 1 [facility] [place] [address] * Hepatitis C antibody (01/21/2023 3:21 PM CDT) Hep C Ab Nonreactive Nonreactive [facility] ([place]) Comment: Interpretive Data Nonreactive: Antibodies to [...] last revised on 2019. Testing performed by: [facility], [address] [place] [address]., [id number] Blood 01/21/2023 3:21 PM CDT 01/22/2023 9:37 AM CDT us Da Carreon MD LAB MICROBIOLOGY - GENE RAL ORDERABLES Final Result Performing Organization Address [facility]/ZIP Co de Phone Number [facility] ([place]) 1 [facility] [place] [address] from Last 3 Months or Most Recently Relevant to Health Maintenance Insurance [facility] Advance Directives For more information, please contact: [phone] * Full Code (Latest Code Status on [...] in case of cardiopulmonary arrest Care Teams Live Out Nanny Relationship Specialty Start Date End Date Vickey Bassett MD [address] [facility] [place] [address] PCP - General Family Medicine 12/22/24 No, Physician 08/31/20 Nestor Boss MD [address] [place] [address] [address] MOSS [address] [address] Envelope Sealer Operator Obstetrics and Gynecology 01/12/21
--- OUTSIDE RECORDS SUMMARY | 2025-01-01 17:44 | XMS_ITS | Clinical Summary ---
Author Organization [facility] Address [address] [place] [address] Care Team Providers Care Riprap Placer Name Role Phone No, Physician Unavailable Nestor Boss MD Unavailable + [phone] Vickey Bassett MD Primary Care Provider + [phone] Allergies Active Allergy Reactions Criticality Noted Date [...] 06/27/2022 Assessment & Plan (12/14/2022 12:49 PM SCRIPT COORDINATOR): - chronic, recurrent - had EMG/NCV as [...] healthier Assessment & Plan (12/14/2022 12:47 PM SCRIPT COORDINATOR): Wt Readings from Last 3 Encounters: 12/14/22 [...] 06/26/2022 Assessment & Plan (12/14/2022 1:10 PM SCRIPT COORDINATOR): - chronic, not at goal - issues [...] --> she was seeing a psychiatrist in [place] but was told she cannot see them as she is no longer living in [place], now walker appointment with a new psychiatrist [...] forward Assessment & Plan (12/14/2022 1:12 PM SCRIPT COORDINATOR): - chronic, improved but not well controlled [...] 06/26/20 Assessment & Plan (08/31/2020 4:36 AM SCRIPT COORDINATOR): Currently resolved. Patient would like to the try clear liquid diet at this time. Will advance as tolerated. P.r.n. Zofran Acetaminophen adverse reaction 08/30/2020 06/26/2022 Assessment & Plan (08/31/2020 4:39 AM SCRIPT COORDINATOR): Exact amount of Tylenol ingested is unclear as patient appears to be an inconsistent historian. Patient's Tylenol level peaked at 16.1. Repeat was less than 15. LFTs remain normal. INR remains stable. Patient counseled on the importance of not exceeding 8 tablets of extra-strength Tylenol daily as it can lead to liver failure. Dentalgia 07/28/2020 06/26/2022 Assessment & Plan (08/31/2020 4:39 AM SCRIPT COORDINATOR): That has been present for the last [...] delivery 06/26/2022 40 weeks gestation of 06/26/2022 Encounters Date Type Department Care Team Description 12/22/2024 2:26 AM CDT - 12/22/2024 4:59 AM CDT Emergency [facility] Emergency Department [address] [id number] Ruy Keys MD 10 weeks gestation of (Primary Dx) Discharge Disposition: Discharge to home or self care from Last 3 Months Immunizations Immunization Administration Dates Next Due Hep [...] on file Legal Sex Female 9:12 AM SCRIPT COORDINATOR Gender Identity Not on file Sexual Orientation Not on file Obstetrics History Para Term AB IAB SAB Ectopic Multiple Livin g Live Births 7 4 3 1 2 2 0 4 [...] Epidur al Y Livin g 8 9 EDIS ,GIRL DARION daly, Linda Gore MD Complications:None Delivery Location:This Facil ity ([facility]) Current Last Filed Vital Signs Vital Sign Reading [...] 12/22/2024 12:21 AM CDT Plan of Treatment Health Maintenance [...] of Race in Diagnosing Kidney Disease, JASN 202). The CKD-EPI equation should not be used for patients with unstable renal function and has not been validated in children and those over 70. Current interpretive data was last reviewed 2021. Blood 12/22/2024 12:4 5 AM CDT 12/22/2024 12:50 AM CDT us Ruy Keys MD LAB BLOOD ORDERABLES Final R esult JOSEF [facility] ([place]) 1 [facility] Department [place] [address] * (ABNORMAL) Differential, auto (12/22/2024 12:45 AM CDT) Neutrophil abs 6.2 1.5 - 6.5 K/cumm Imm gran abs 0.0 0.0 - 0.1 K/cumm [facility] ([place]) Lymphocyte abs 4.0(H) 0.8 - 3.3 K/cumm [facility] ([place]) Monocyte abs 0.4 0.2 - 0.8 K/cumm [facility] ([place]) Eosinophil abs 0.2 0.0 - 0.5 K/cumm [facility] ([place]) Basophil abs 0.0 0.0 - 0.1 K/cumm [facility] ([place]) Neutrophil pct 57.2 % [facility] ([place]) Comment: Interpretive Data Percent cell count reference ranges are not reported, since discordance with absolute values may lead to misinterpretation of CBC data. Current Interpretive Data was last revised on 2018. Imm gran pct 0.4 % [facility] ([place]) Comment: Interpretive Data Percent cell count reference ranges are not reported, since discordance with absolute values may lead to misinterpretation of CBC data. Current Interpretive Data was last revised on 2018. Lymphocyte pct 36.7 % [facility] ([place]) Comment: Interpretive Data Percent cell count reference ranges are not reported, since discordance with absolute values may lead to misinterpretation of CBC data. Current Interpretive Data was last revised on 2018. Monocyte pct 3.9 % [facility] ([place]) Comment: Interpretive Data Percent cell count reference ranges are not reported, since discordance with absolute values may lead to misinterpretation of CBC data. Current Interpretive Data was last revised on 2018. Eosinophil pct 1.4 % [facility] ([place]) Comment: Interpretive Data Percent cell count reference [...] MD LAB BLOOD ORDERABLES Final R esult [facility] ([place]) 1 [facility] Department [place] [address] * (ABNORMAL) Urinalysis reflex to microscopic and [...] tendency for uric acid stone formation. Source: [facility] [employer] Current Interpretive Data was last revised on [...] 12:50 AM CDT Ruy Keys MD LAB MICROBIOLOGY - GENERAL O RDERABLES Final Result [facility] ([place]) 1 [facility] [place] [address] * (ABNORMAL) CBC with auto differential (12/22/2024 [...] BLOOD ORDERABLES Final R esult JOSEF [facility] ([place]) 1 [facility] [place] [employer] [place] [address] * ABO/Rh (12/22/2024 12:45 AM CDT) ABO/Rh A Positive Blood 12/22/2024 12:4 5 AM CDT 12/22/2024 12:50 AM CDT Narrative [facility] ([place]) - 12/22/2024 1:56 AM CDT Has the patient had Daratumumab or Isatuximab in the past 6 months?->Unknown Ruy Keys MD LAB BLOOD BANK TEST ORDERABL ES Final Result Performing Organization Address City/[facility]/ZIP Co de Phone Number JOSEF [facility] ([place]) 1 [facility] [place] [address] * (ABNORMAL) Urinalysis, microscopic only (12/22/2024 12:45 AM CDT) WBC, ur 0-5 0 - 5 /HPF RBC, ur 0-2 0 - 2 /HPF JOSEF [facility] ([place]) Epithelial cells, squamous, ur 21-50(A) 0 - 5 /HPF JOSEF [facility] ([place]) Bacteria, ur Trace(A) SH[facility]ID[facility] ([place]) Mucous, ur Present(A) CERNER A ([place]) Culture Reflex Comment Reflex conditions for urine culture (WBC >10) not met. JOSEF [facility] ([place]) Urine 12/22/2024 12:4 5 AM CDT 12/22/2024 12:50 AM CDT Ruy Keys MD LAB URINE ORDERABLES Final R esult JO[facility] ([place]) 1 [facility] [place] [address] * Antibody screen (12/22/2024 12:45 AM CDT) Ken, indirect, Gel Interpretation Negative ABSC Blood 12/22/2024 12:4 5 AM CDT 12/22/2024 12:50 AM CDT Narrative JOSEF [facility] ([place]) - 12/22/2024 1:56 AM CDT Has the patient had Daratumumab or Isatuximab in the past 6 months?->Unknown Ruy Keys MD LAB BLOOD BANK TEST ORDERABL ES Final Result Performing Organization Address [facility] Co de Phone Number JOSEF GUERRA) [address] [place] [address] * (ABNORMAL) hCG, blood, quantitative (12/22/2024 12:45 [...] LAB BLOOD ORDERABLES Edited Result - Final Performing Organization Address City/[facility]/ZIP Co de Phone Number JOSEF [facility]OP[facility] ([place]) [address] [place] [address] * (ABNORMAL) Comprehensive metabolic panel (12/22/2024 12:45 AM CDT) Sodium 136 135 - 145 mmol/L Potassium, pl 3.7 3.3 - 4.9 mmol/L [facility] ([place]) Chloride 101 97 - 110 mmol/L [facility] ([place]) CO2 20(L) 22 - 32 mmol/L [facility] ([place]) Anion gap 15 2 - 15 mmol/L [facility] ([place]) BUN 8 6 - 25 mg/dL [facility] ([place]AC) Creatinine 0.47(L) 0.60 - 1.10 mg/dL [facility] ([place]) Glucose 109 70 - 199 mg/dL [facility] ([place]) Comment: Interpretive Data Fasting glucose >/= [...] Protein, pl 7.5 6.5 - 8.5 g/dL [facility] ([place]) Albumin 4.1 3.5 - 5.0 g/dL [facility] ([place]) Alk phos 74 40 - 130 Units/L [facility] ([place]) ALT 13 7 - 45 Units/L [facility] ([place]) AST 14 10 - 45 Units/L [facility] ([place]) Blood 12/22/2024 12:4 5 AM CDT 12/22/2024 12:50 AM CDT Ruy Keys MD LAB BLOOD ORDERABLES Final R esult [facility] ([place]) 1 [facility] Department [place] [address] * Hepatitis C antibody (01/21/2023 3:21 PM CDT) Hep C Ab Nonreactive Nonreactive [facility] ([place]) Comment: Interpretive Data Nonreactive: Antibodies to [...] last revised on 2019. Testing performed by: [facility] [address] [place] [address], [place]., [address] Blood 01/21/2023 3:21 PM CDT 01/22/2023 9:37 AM CDT Da Carreon MD LAB MICROBIOLOGY - GENE RAL ORDERABLES Final Result [facility] ([place]) 1 [facility] Department [place] [address] from Last 3 Months or Most Recently Relevant to Health Maintenance Insurance Advance Directives For more information, please contact: [phone] * Full Code (Latest Code Status on [...] in case of cardiopulmonary arrest Care Teams Riprap Placer Relationship Specialty Start Date End Date Vickey Bassett MD [address] [facility] [address] [place] [address] PCP - General Family Medicine 12/22/24 No, Physician 08/31/20 Nestor Boss MD [address] [facility] [address] AJAY Causey [facility] [address] [place] [address] Newspaper Copy Editor Obstetrics and Gynecology 01/12/21
--- OUTSIDE RECORDS SUMMARY | 2025-01-01 17:44 | XMS_ITS | Clinical Summary ---
Author Organization [facility] Address [address] [place] [address] Care Team Providers Care Tailor'S Aide Name Role Phone Mustapha Hogue MD Primary Care Provider [phone] Source Comments [facility],non-owned Affiliates and Associated Physician Practices is amultiple site organization consisting of ambulatory clinics and hospital sitesin [place], [place], [place] and [place]. This disclosure is being madepursuant to the Care Everywhere program and may not contain all information available regarding this patient. Last updated 18.[facility] [employer] Allergies No known active allergies Medications * [...] of 2 - PCV) 2013 COVID-19 VACCINE (1 - 2023-2 5 season) 2024 INFLUENZA VACCINE (#1) 2024 DEPRESSION SCREENING 10/07/2024 ZOSTER VACCINE (1 of 2) 2044 HIB VACCINE Aged Out No longer eligi ble based on patient's age to complete this topic HPV VACCINE Aged Out No longer eligi ble based on patient's age to complete this topic MENINGOCOCCAL (Group B) VACC INE SHARED DECISION-MAKING Aged Out No longer eligibl e based on patient's age to complete this topic MENINGOCOCCAL GROUPS A/C/Y/W VACCINE Aged Out No longer eligible b ased on patient's age to complete this topic Care Teams Tailor'S Aide Relationship Specialty Start Date End Date Mustapha Hogue MD [address] [place] [id number] PCP - General 08/13/22
--- OUTSIDE RECORDS SUMMARY | 2025-01-01 17:44 | XMS_ITS | Continuity of Care Document ---
Author Organization [facility] Address [address] [place] [address] Phone Care Team Providers Care Counter Intelligence Name Role Phone Management, Case Unavailable Unavailable Unavailable Unavailable Unavailable Allergies, Adverse Reactions, Alerts Substance Reaction Status Criticality No Known allergies Medications Medication Instructions Dosage Effective Dates (start - stop) Status Comments Miralax 17 gram Oral Powder Packet take 1 packet (17G) by ORAL route every day mixed with 8 oz. drink - Active promethazine 25 mg Tab take one three ti mes daily as needed for vomiting - Active pyridoxine 50 mg Tab take one tab three times every day as needed for nausea - Active ferrous sulfate 325 mg (65 mg iron) Tab take 1 tablet (325MG) by ORAL route every day 325 MG - Active Vitamin Tab take 1 tablet [...] Diagnoses Date Provider Providers [facility]ied on [facility] , [address], [place], [place], [id number], [place] tel:[phone] [facility] [place] No Information Management Case. [address], [place], [place], [address], [place]. tel:[phone] HEALTH RISK ASSESSMENT TEST [facility] , [address], [place], [place], [address], tel:[phone] [facility] [place] pn intake (chief complaint) No Information Management Case. [address], [place], [place], [address], [place]. tel:[phone] OFFICE/OUTPAT IENT VISIT, NEW [facility] , [address], [place], [place], [address], tel:[phone] [facility] [place] No Information No Information Family History Family Member Type Diagnosis Age At Onset No Information Payers Payer name Insurance type Covered green party ID Authoryolandaa ana rosakatharina(s) Medicaid - [facility] [id number] Social History Type Description Quantity Date Captured Comments Sex Female Smoking Status No Information Chief Complaint And Reason For Visit No Information Reason For Referral Reason For Referral No Information Plan Of Treatment Date Type Action Status Referral Referred To: [facility] [address] [place], [phone] Ordered: Referral: [facility] Radii[facility]. Radiology. ordered History Of Present Illness Encounter Date Complaint History Of Prese nt Illness No Information Functional Status Date Functional Assessmen t No Information Instructions Date Instruction Additional Infor mation No Information Assessments Type Assessment Date No Information Patient Care Teams Name Effective Dates (start - stop) Status Members No Information
--- OUTSIDE RECORDS SUMMARY | 2025-01-01 17:44 | XMS_ITS | Clinical Summary ---
Author Organization [facility] Address [address] [place] [address] Phone Care Team Providers Care Catalog Specialist Name Role Phone Da Carreon MD Primary Care Provider Mustapha Hogue MD Unavailable Allergies No known active allergies Medications ondansetron [...] Comments Blood Pressure 128/82 09/28/2023 8:30 PM TILE SETTER SUPERVISOR Pulse 75 09/28/2023 8:30 PM TILE SETTER SUPERVISOR Temperature 36.9 C (98.4 F) 09/28/2023 5:56 PM TILE SETTER SUPERVISOR Respiratory Rate 16 09/28/2023 8:30 PM TILE SETTER SUPERVISOR Oxygen Saturation 98% 09/28/2023 8:30 PM TILE SETTER SUPERVISOR Inhaled Oxygen Concentration - - Weight 106.9 kg (235 lb 10.8 oz) 09/28/2023 5:56 PM TILE SETTER SUPERVISOR Height 160 cm (5' 3 ) 09/28/2023 5:56 PM TILE SETTER SUPERVISOR Body Mass Index 41.75 09/28/2023 5:56 PM TILE SETTER SUPERVISOR Plan of Treatment Health Maintenance Due Date [...] this topic Insurance MEDICAID [place] MEDICAID [facility] GENERIC Care Teams Catalog Specialist Relationship Specialty Start Date End Date Da Carreon MD [address] [place] [address] PCP - General Family Medicine 08/27/23 Mustapha Hogue MD [address] [place] [id number] Family Medicine 08/27/23
--- NOTE | 2025-01-01 17:55 | ED.URI ---
HPI - URI/Sore Throat General Chief Complaint: Upper Respiratory Infection Stated Complaint: covid exposure, no symptoms, requesting test Source: patient and family Mode of arrival: ambulatory Limitations: no limitations History of Present Illness HPI Narrative: patient is a 29-year-old female asymptomatic and exposure to COVID. She wishes to have COVID testing. MD elicited complaint: other ( None) Pertinent past history: other ( none) Onset (ago): unknown ( none) Consistency: other ( none) Pain scale (0-10): 0 Description of mucous: other ( none) Able to tolerate fluids by mouth: Yes Exacerbating factors: nothing Relieving factors: nothing Context: sick contacts Associated symptoms: denies other symptoms Treatments prior to arrival: none Related Data Home Medications ?Medication ?Instructions ?Recorded ?Confirmed ?Last Taken ?Type vit no.95-ferrous 1 tablet PO DAILY 01/01/25 Unknown History fumarate 28 mg-folic acid 800 mcg tablet () Allergies Allergy/AdvReac Type Severity Reaction Status Date / Time bee venom protein (honey Allergy Unknown Verified 01/01/25 17:54 bee) (bees) Review of Systems Review of Systems: All systems reviewed & are unremarkable except as noted in HPI and below Constitutional: Constitutional: Reports no additional constitutional complaints Eyes: Eyes: Reports no additional eye complaints ENT: Reports system reviewed and no additional complaints, except as documented Cardiovascular: Cardiovascular: Reports no additional cardiovascular complaints Respiratory: Respiratory: Reports no additional respiratory complaints Gastrointestinal: Gastrointestinal: Reports no additional gastrointestinal complaints Genitourinary: Genitourinary: Reports no additional female genitourinary complaints Musculoskeletal: Musculoskeletal: Reports no additional musculoskeletal complaints Integumentary/Breasts: Skin/Breast: Reports system reviewed and no additional complaints, except as docu Neurologic: Reports system reviewed and no additional complaints, except as documented Psychiatric: Psychiatric: Reports no additional psychiatric complaints Endocrine: Endocrine: Reports no additional endocrine complaints Hematologic/Lymphatic: Hematologic/Lymphatic: Reports no additional hematologic/lymphatic complaints Allergic/Immunologic: Allergic/Immunologic: Reports no additional allergic/immunologic complaints PMFSH Past Medical History Medical History Anxiety Exam Const: General: healthy appearing Nutritional Appearance: well nourished Orientation/consciousness: patient oriented x3 Limitations: no limitations HENMT: Head: normal to inspection Ears: external ears normal Face/Nose/Sinus: Normal external nose present Eyes: Conjunctivae: conjunctivae normal Pupils: Equal, round and reactive pupils present EOM: EOMs intact bilaterally Neck: Neck: normal visual inspection Chest: Chest palpation & inspection: normal inspection of the chest Resp: Effort & Inspection: normal respiratory effort and not labored Auscultation: clear to auscultation bilaterally and no crackles Cardio: Rate: regular rate Rhythm: regular rhythm Heart sounds: no murmurs GI: Inspection: non-distended GI Palp: Yes Soft to palpation and No Tenderness to palpation present (GI) Auscultation: normal bowel sounds : General: Yes bladder normal to palpation Back/Spine/Pelvis: Back: no CVA tenderness Skin: General skin exam: normal color Rashes: no rashes Wounds: no wounds Neuro: General: patient oriented x3 Cranial nerves: Yes Nystagmus not present Speech: normal speech Gait exam (Neuro): Normal gait present Extrem: General: normal to inspection Psych: Mental Status: mental status grossly normal Affect: normal affect Attitude: cooperative Course Vital Signs Vital signs: Vital Signs Temperature 37.1 C 01/01/25 18:02 Pulse Rate 83 01/01/25 18:02 Respiratory Rate 16 01/01/25 18:02 Blood Pressure 142/78 H 01/01/25 18:02 Pulse Oximetry 95 01/01/25 18:02 Oxygen Delivery Room Air 01/01/25 18:02 Temperature 37.1 C 01/01/25 18:02 Pulse Rate 83 01/01/25 18:02 Respiratory Rate 16 01/01/25 18:02 Blood Pressure 142/78 H 01/01/25 18:02 Pulse Oximetry 95 01/01/25 18:02 Oxygen Delivery Room Air 01/01/25 18:02 MDM - URI/Sore Throat MDM Narrative Medical decision making narrative: patient is a 29-year-old female who is here for COVID testing and no symptoms. We will do a COVID panel test. Lab Data Attestation: I reviewed the patient's lab results. Labs: Lab Results 01/01/25 Range/Units 17:54 Influenza A (RT-PCR) Negative (Negative) Influenza B (RT-PCR) Negative (Negative) RSV (RT-PCR) Negative (Negative) SARS-CoV-2 RNA (RT-PCR) Negative (Negative) Discharge Plan Discharge Clinical Impression: Close exposure to COVID-19 virus Patient Disposition: Home, Self-Care Condition: Stable Instructions: COVID-19 (Coronavirus Disease 2019) (ED) Patient Language: Kinyarwanda Prescriptions: No Action PNV cmb#95-ferrous fumarate-FA [] 28 mg iron- 800 mcg tablet 1 tablet PO DAILY Follow-up/Referrals: Ashly Quarles MD [Physician] - Time of Disposition: 18:44
[2025-01-01 18:02] VITALS: BP 142/78; PULSE 83; RESP 16; TEMP 37.1; O2SAT 95
--- OUTSIDE RECORDS SUMMARY | 2025-01-01 18:23 | XMS_ITS | Continuity of Care Document ---
Author Organization [facility] Address [address] [place] [address] Phone Care Team Providers Care Contract Graphic Designer Name Role Phone Management, Case Unavailable Unavailable [...] Diagnoses Date Provider Providers [facility] , [address], [place], [place], [address], [place] tel:[phone] [facility] [place] No Information Management Case. [address], [place], [place], [address], [place]. tel:[phone] HEALTH RISK ASSESSMENT TEST [facility] , [address], [place], [place], [id number], tel:[phone] [facility] [place] pn intake (chief complaint) No Information Management Case. [address], [place], [place], [address], [place]. tel:[phone] OFFICE/OUTPAT IENT VISIT, NEW [facility] , [address], [place], [place], [address], tel:[phone] [facility] No Information No Information Family History Family Member Type Diagnosis Age At Onset No Information Payers Payer name Insurance type Covered constitution party ID Authoryolandaa ana rosakatharina(s) Medicaid - [facility] [id number] Social History Type Description Quantity Date Captured Comments Sex Female Smoking Status No Information Chief Complaint And Reason For Visit No Information Reason For Referral Reason For Referral No Information Plan Of Treatment Date Type Action Status Referral Referred To: [facility] [address] [place], [phone] Ordered: Referral: [facility]ii[facility]. Radiology. ordered History Of Present Illness Encounter Date Complaint History Of Prese nt Illness No Information Functional Status Date Functional Assessmen t No Information Instructions Date Instruction Additional Infor mation No Information Assessments Type Assessment Date No Information Patient Care Teams Name Effective Dates (start - stop) Status Members No Information
--- OUTSIDE RECORDS SUMMARY | 2025-01-01 18:23 | XMS_ITS | Referral Summary ---
Author Organization [facility] stan Address [address] [place] [address] Care Team Providers Care Production Support Specialist Name Role Phone No, Physician Unavailable Nestor Boss MD Unavailable [phone] Vickey Bassett MD Primary Care Provider + [phone] Encounters Date Type Department Care Team Description 12/22/2024 2:26 AM CDT - 12/22/2024 4:59 AM CDT Emergency [facility] Emergency Department 1 [place] [address] Ruy Keys MD 10 weeks gestation of [...] 06/27/2022 Assessment & Plan (12/14/2022 12:49 PM MICROBIOLOGY LAB ASSISTANT): - chronic, recurrent - had EMG/NCV as [...] healthier Assessment & Plan (12/14/2022 12:47 PM MICROBIOLOGY LAB ASSISTANT): Wt Readings from Last 3 Encounters: 12/14/22 [...] 06/26/2022 Assessment & Plan (12/14/2022 1:10 PM MICROBIOLOGY LAB ASSISTANT): - chronic, not at goal - issues [...] also will be seeing a therapist, via [employer] [facility] [employer] --> she was seeing a psychiatrist in [place] but was told she cannot see them as she is no longer living in [place], now walker appointment with a new psychiatrist [...] forward Assessment & Plan (12/14/2022 1:12 PM MICROBIOLOGY LAB ASSISTANT): - chronic, improved but not well controlled [...] 06/26/20 Assessment & Plan (08/31/2020 4:36 AM MICROBIOLOGY LAB ASSISTANT): Currently resolved. Patient would like to the try clear liquid diet at this time. Will advance as tolerated. P.r.n. Zofran Acetaminophen adverse reaction 08/30/2020 06/26/2022 Assessment & Plan (08/31/2020 4:39 AM MICROBIOLOGY LAB ASSISTANT): Exact amount of Tylenol ingested is unclear as patient appears to be an inconsistent historian. Patient's Tylenol level peaked at 16.1. Repeat was less than 15. LFTs remain normal. INR remains stable. Patient counseled on the importance of not exceeding 8 tablets of extra-strength Tylenol daily as it can lead to liver failure. Dentalgia 07/28/2020 06/26/2022 Assessment & Plan (08/31/2020 4:39 AM MICROBIOLOGY LAB ASSISTANT): That has been present for the last [...] on file Legal Sex Female 9:12 AM MICROBIOLOGY LAB ASSISTANT Gender Identity Not on file Sexual Orientation [...] MD LAB BLOOD ORDERABLES Final R esult [facility] ([place]) 1 [facility] Department [place] [address] * (ABNORMAL) Differential, auto (12/22/2024 12:45 AM [...] BLOOD ORDERABLES Final R esult [facility] ([place]) 1 [facility] Department [place] [address] * (ABNORMAL) Urinalysis reflex to microscopic and [...] tendency for uric acid stone formation. Source: [facility] Current Interpretive Data was last revised [...] GENERAL O RDERABLES Final Result [facility] ([place]) 1 [facility] Department [place] [address] * (ABNORMAL) CBC with auto differential (12/22/2024 [...] AM CDT 12/22/2024 12:50 AM CDT Ruy Kyes MD LAB BLOOD ORDERABLES Final R esult [facility] ([place]) 1 [facility] [place] [address] * ABO/Rh (12/22/2024 12:45 AM CDT) ABO/Rh A Positive Blood 12/22/2024 12:4 5 AM CDT 12/22/2024 12:50 AM CDT Narrative [facility] ([place]) - 12/22/2024 1:56 AM CDT Has the patient had Daratumumab or Isatuximab in the past 6 months?->Unknown Ruy Keys MD LAB BLOOD BANK TEST ORDERABL ES Final Result Performing Organization Address City/[facility]/ZIP Co de Phone Number [facility] ([place]) 1 [facility] [place] [address] * (ABNORMAL) Urinalysis, microscopic only (12/22/2024 12:45 AM CDT) WBC, ur 0-5 0 - 5 /HPF RBC, ur 0-2 0 - 2 /HPF [facility] ([place]) Epithelial cells, squamous, ur 21-50(A) 0 - 5 /HPF [facility] ([place]) Bacteria, ur Trace(A) [facility] ([place]) Mucous, ur Present(A) [facility] ([place]) Culture Reflex Comment Reflex conditions for urine culture (WBC >10) not met. [facility] ([place]) Urine 12/22/2024 12:4 5 AM CDT 12/22/2024 12:50 AM CDT Ruy Keys MD LAB URINE ORDERABLES Final R esult Performing Organization Address City/[facility]/ZIP Co de Phone Number [facility] ([place]) 1 [facility] [place] [address] * Antibody screen (12/22/2024 12:45 AM CDT) Pathologist [facility] Ken, indirect, Gel Interpretation Negative ABSC Blood 12/22/2024 12:4 5 AM CDT 12/22/2024 12:50 AM CDT Narrative [facility] ([place]) - 12/22/2024 1:56 AM CDT Has the patient had Daratumumab or Isatuximab in the past 6 months?->Unknown Ruy Keys MD LAB BLOOD BANK TEST ORDERABL ES Final Result [facility] ([place]) 1 [place] [address] * (ABNORMAL) hCG, blood, quantitative (12/22/2024 12:45 [...] LAB BLOOD ORDERABLES Edited Result - Final [facility] ([place]) 1 [facility] Department [place] [address] * (ABNORMAL) Comprehensive metabolic panel (12/22/2024 12:45 [...] Protein, pl 7.5 6.5 - 8.5 g/dL [facility] ([place]) Albumin 4.1 3.5 - 5.0 g/dL [facility] ([place]) Alk phos 74 40 - 130 Units/L [facility] ([place]) ALT 13 7 - 45 Units/L [facility] ([place]) AST 14 10 - 45 Units/L [facility] ([place]) Blood 12/22/2024 12:4 5 AM CDT 12/22/2024 12:50 AM CDT us Ruy Keys MD LAB BLOOD ORDERABLES Final R esult Performing Organization Address City/[facility]/ZIP Co de Phone Number [facility] ([place]) 1 [facility] [place] [address] * Hepatitis C antibody (01/21/2023 3:21 PM CDT) Hep C Ab Nonreactive Nonreactive [facility] ([place]) Comment: Interpretive Data Nonreactive: Antibodies [...] last revised on 2019. Testing performed by: [facility], [address] [place] [address]., [id number] Blood 01/21/2023 3:21 PM CDT 01/22/2023 9:37 AM CDT us Da Carreon MD LAB MICROBIOLOGY - GENE RAL ORDERABLES Final Result Performing Organization Address [facility]/ZIP Co de Phone Number JO[facility]F [facility] ([place]) 1 [facility] [place] [address] from Last 3 Months or Most Recently Relevant to Health Maintenance Insurance [facility] Advance Directives For more information, please contact: [phone] * Full Code (Latest Code Status on [...] in case of cardiopulmonary arrest Care Teams Production Support Specialist Relationship Specialty Start Date End Date Vickey Bassett MD [address] [address] PCP - General Family Medicine 12/22/24 No, Physician 08/31/20 Nestor Boss MD [address] [place] [address] DR MOSS B [address] [address] Avionics Supervisor Obstetrics and Gynecology 01/12/21
--- OUTSIDE RECORDS SUMMARY | 2025-01-01 18:23 | XMS_ITS | Clinical Summary ---
Author Organization [facility] Address [address] [facility] [place] [address] Care Team Providers Care Drapery Rod Assembler Name Role Phone Mustapha Hogue MD Primary Care Provider [phone] Source Comments [facility],non-owned Affiliates and Associated Physician Practices is amultiple site organization consisting of ambulatory clinics and hospital sitesin [place], [place], [place] and [place]. This disclosure is being madepursuant to the Care Everywhere program and may not contain all information available regarding this patient. Last updated 18.[facility] [employer] Allergies No known active allergies Medications * [...] age to complete this topic Care Teams Drapery Rod Assembler Relationship Specialty Start Date End Date Mustapha Hogue MD [address] [place] [id number] PCP - General 08/13/22
--- OUTSIDE RECORDS SUMMARY | 2025-01-01 18:23 | XMS_ITS | Clinical Summary ---
Author Organization [facility] Address [address] [place] [address] Care Team Providers Care Resident Care Coordinator Name Role Phone No, Physician Unavailable Nestor Boss MD Unavailable + [phone] Vickey Bassett MD Primary Care Provider + [phone] Allergies Active Allergy Reactions Criticality Noted Date [...] 06/27/2022 Assessment & Plan (12/14/2022 12:49 PM IMPROVEMENT SPECIALIST): - chronic, recurrent - had EMG/NCV as [...] healthier Assessment & Plan (12/14/2022 12:47 PM IMPROVEMENT SPECIALIST): Wt Readings from Last 3 Encounters: 12/14/22 [...] 06/26/2022 Assessment & Plan (12/14/2022 1:10 PM IMPROVEMENT SPECIALIST): - chronic, not at goal - issues [...] --> she was seeing a psychiatrist in [place] but was told she cannot see them as she is no longer living in [place], now walker appointment with a new psychiatrist [...] forward Assessment & Plan (12/14/2022 1:12 PM IMPROVEMENT SPECIALIST): - chronic, improved but not well controlled [...] 06/26/20 Assessment & Plan (08/31/2020 4:36 AM IMPROVEMENT SPECIALIST): Currently resolved. Patient would like to the try clear liquid diet at this time. Will advance as tolerated. P.r.n. Zofran Acetaminophen adverse reaction 08/30/2020 06/26/2022 Assessment & Plan (08/31/2020 4:39 AM IMPROVEMENT SPECIALIST): Exact amount of Tylenol ingested is unclear as patient appears to be an inconsistent historian. Patient's Tylenol level peaked at 16.1. Repeat was less than 15. LFTs remain normal. INR remains stable. Patient counseled on the importance of not exceeding 8 tablets of extra-strength Tylenol daily as it can lead to liver failure. Dentalgia 07/28/2020 06/26/2022 Assessment & Plan (08/31/2020 4:39 AM IMPROVEMENT SPECIALIST): That has been present for the last [...] CDT - 12/22/2024 4:59 AM CDT Emergency [facility] Emergency Department [address] [place] [id number] Ruy Keys MD 10 weeks gestation of [...] on file Legal Sex Female 9:12 AM IMPROVEMENT SPECIALIST Gender Identity Not on file Sexual Orientation [...] BLOOD ORDERABLES Final R esult [facility] ([place]) 1 [facility] Department [place] [address] * (ABNORMAL) Differential, auto (12/22/2024 12:45 AM CDT) Neutrophil abs 6.2 1.5 - 6.5 K/cumm Imm gran abs 0.0 0.0 - 0.1 K/cumm [facility] ([place]) Lymphocyte abs 4.0(H) 0.8 - 3.3 K/cumm [facility] ([place]) Monocyte abs 0.4 0.2 - 0.8 K/cumm [facility] ([place]) Eosinophil abs 0.2 0.0 - 0.5 K/cumm [facility] ([place]) Basophil abs 0.0 0.0 - 0.1 K/cumm [facility] ([place]) Neutrophil pct 57.2 % [facility] ([place]) Comment: Interpretive Data Percent cell count reference ranges are not reported, since discordance with absolute values may lead to misinterpretation of CBC data. Current Interpretive Data was last revised on 2018. Imm gran pct 0.4 % [facility] ([place]) Comment: Interpretive Data Percent cell count reference ranges are not reported, since discordance with absolute values may lead to misinterpretation of CBC data. Current Interpretive Data was last revised on 2018. Lymphocyte pct 36.7 % [facility] ([place]) Comment: Interpretive Data Percent cell count reference ranges are not reported, since discordance with absolute values may lead to misinterpretation of CBC data. Current Interpretive Data was last revised on 2018. Monocyte pct 3.9 % [facility] ([place]) Comment: Interpretive Data Percent cell count reference ranges are not reported, since discordance with absolute values may lead to misinterpretation of CBC data. Current Interpretive Data was last revised on 2018. Eosinophil pct 1.4 % [facility] ([place]) Comment: Interpretive Data Percent cell count reference [...] Final R esult [facility] ([place]) 1 [facility] Department [place] [address] * (ABNORMAL) Urinalysis reflex to microscopic and [...] uric acid stone formation. Source: [facility] [employer] Current Interpretive Data was last revised on [...] RDERABLES Final Result [facility] ([place]) 1 [facility] [employer] [place] [address] * (ABNORMAL) CBC with auto differential (12/22/2024 [...] Final R esult [facility] ([place]) 1 [facility] [place] [address] * ABO/Rh (12/22/2024 12:45 AM CDT) ABO/Rh A Positive Blood 12/22/2024 12:4 5 AM CDT 12/22/2024 12:50 AM CDT Narrative [facility] ([place]) - 12/22/2024 1:56 AM CDT Has the patient had Daratumumab or Isatuximab in the past 6 months?->Unknown Ruy Keys MD LAB BLOOD BANK TEST ORDERABL ES Final Result Performing Organization Address City/[facility] [address]/ZIP Co de Phone Number [facility] ([place]) 1 [facility] [employer] [place] [address] * (ABNORMAL) Urinalysis, microscopic only (12/22/2024 12:45 AM CDT) WBC, ur 0-5 0 - 5 /HPF RBC, ur 0-2 0 - 2 /HPF [facility] ([place]) Epithelial cells, squamous, ur 21-50(A) 0 - 5 /HPF [facility] ([place]) Bacteria, ur Trace(A) [facility] ([place]) Mucous, ur Present(A) [facility] ([place]) Culture Reflex Comment Reflex conditions for urine culture (WBC >10) not met. [facility] ([place]) Urine 12/22/2024 12:4 5 AM CDT 12/22/2024 12:50 AM CDT Ruy Keys MD LAB URINE ORDERABLES Final R esult [facility] ([place]) 1 [facility] [employer] [place] [address] * Antibody screen (12/22/2024 12:45 AM CDT) Ken, indirect, Gel Interpretation Negative ABSC Blood 12/22/2024 12:4 5 AM CDT 12/22/2024 12:50 AM CDT Narrative [facility]F [facility] ([place]) - 12/22/2024 1:56 AM CDT Has the patient had Daratumumab or Isatuximab in the past 6 months?->Unknown Ruy Keys MD LAB BLOOD BANK TEST ORDERABL ES Final Result Performing Organization Address [facility] [place]/[facility] [address]/[facility] Co de Phone Number JOSEF [facility]ER[facility]) [address] [place] [address] * (ABNORMAL) hCG, blood, quantitative (12/22/2024 12:45 [...] Edited Result - Final Performing Organization Address City/[facility] [address]/ZIP Co de Phone Number JO[facility]F [facility] ([place]) [address] [place] [address] * (ABNORMAL) Comprehensive metabolic panel (12/22/2024 12:45 AM CDT) Sodium 136 135 - 145 mmol/L Potassium, pl 3.7 3.3 - 4.9 mmol/L [facility] ([place]) Chloride 101 97 - 110 mmol/L [facility] ([place]) CO2 20(L) 22 - 32 mmol/L [facility] ([place]) Anion gap 15 2 - 15 mmol/L [facility] ([place]) BUN 8 6 - 25 mg/dL [facility] ([place]) Creatinine 0.47(L) 0.60 - 1.10 mg/dL [facility] ([place]) Glucose 109 70 - 199 mg/dL [facility] ([place]) Comment: Interpretive Data Fasting glucose >/= [...] MD LAB BLOOD ORDERABLES Final R esult [facility] ([place]) 1 [facility] Department [place] [address] * Hepatitis C antibody (01/21/2023 3:21 PM [...] last revised on 2019. Testing performed by: [facility] [address] [place] [address], [place]., [address] Blood 01/21/2023 3:21 PM CDT 01/22/2023 9:37 AM CDT Da Carreon MD LAB MICROBIOLOGY - GENE RAL ORDERABLES Final Result [facility] ([place]) 1 [facility] Department [place] [address] from Last 3 Months or Most Recently Relevant to Health Maintenance Insurance Advance Directives For more information, please contact: [phone] * Full Code (Latest Code Status on [...] in case of cardiopulmonary arrest Care Teams Resident Care Coordinator Relationship Specialty Start Date End Date Vickey Bassett MD [address] [facility] [address] [place] [address] PCP - General Family Medicine 12/22/24 No, Physician 08/31/20 Nestor Boss MD [address] [facility] [address] AJAY Causey [facility] [address] [place] [address] Mechanical Adjuster Obstetrics and Gynecology 01/12/21
--- OUTSIDE RECORDS SUMMARY | 2025-01-01 18:23 | XMS_ITS | Clinical Summary ---
Author Organization [facility] Address [address] [place] [address] Phone Care Team Providers Care Rate Clerk Passenger Name Role Phone Da Carreon MD Primary Care Provider Mustapha Hogue MD Unavailable [phone] Allergies No known active allergies Medications ondansetron [...] Comments Blood Pressure 128/82 09/28/2023 8:30 PM SCADA OPERATOR Pulse 75 09/28/2023 8:30 PM SCADA OPERATOR Temperature 36.9 C (98.4 F) 09/28/2023 5:56 PM SCADA OPERATOR Respiratory Rate 16 09/28/2023 8:30 PM SCADA OPERATOR Oxygen Saturation 98% 09/28/2023 8:30 PM SCADA OPERATOR Inhaled Oxygen Concentration - - Weight 106.9 kg (235 lb 10.8 oz) 09/28/2023 5:56 PM SCADA OPERATOR Height 160 cm (5' 3 ) 09/28/2023 5:56 PM SCADA OPERATOR Body Mass Index 41.75 09/28/2023 5:56 PM SCADA OPERATOR Plan of Treatment Health Maintenance Due Date [...] this topic Insurance MEDICAID [place] MEDICAID [facility] Care Teams Rate Clerk Passenger Relationship Specialty Start Date End Date Da Carreon MD [address] [place] [id number] PCP - General Family Medicine 08/27/23 Mustapha Hogue MD [address] [place] [id number] Family Medicine 08/27/23
[2025-01-01 18:40] LABS: Influenza A QL RT-PCR Negative (Negative); Influenza B QL RT-PCR Negative (Negative); RSV RNA, RT-PCR Negative (Negative); SARS-CoV-2 RNA PCR Negative (Negative)
[2025-01-01 18:57] VITALS: BP 129/70; PULSE 87; RESP 16; TEMP 36.6; O2SAT 95
== END 2025-01-01 18:58 | disposition home or self-care (01) ==
PROVIDERS: Emergency Provider Emergency Medicine
DX: Z20.822 Contact with and (suspected) exposure to COVID-19 (principal)
CPT/HCPCS: 87637; 99283